=== PATIENT | male | born 1945 | race Caucasian/White ===

== ENCOUNTER 2020-03-08 14:58 | Outpatient (CLI) | payer OTHER, SELFPAY ==
--- NOTE | ~2020-03-08 | CT_ITS ---
EXAMINATION: CT chest wo con DATE: 03/08/2020 15:17 INDICATION: Emphysema and cough TECHNIQUE: Computed tomography (CT) of the chest was performed without intravenous contrast. The dose -length product (DLP) was 384.61 mGy-cm. Automated exposure control and iterative reconstruction tech nique were employed. COMPARISON: None FINDINGS: There is mild emphysema. Calcified pulmonary nodules and calcified right hilar and mediasti nal lymph nodes are consistent with old granulomatous disease. There is mild atelectasis of the lung bases. The heart size is normal. No pathologically enlarged thoracic lymph nodes are identified. Calc ified coronary artery atherosclerosis is noted. There is moderate thoracic spondylosis. There is a pa rtially imaged 7.7 cm cyst of the left kidney. 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 IMPRESSION: 1. Mild emphysema. Reviewed, dictated and finalized at location A. O PNEUMATIC TESTER IMPRESSION: 1. Mild emphysema.
== END 2020-03-08 14:59 | disposition home or self-care (01) ==
LOC: ANHIMG 15:05
PROVIDERS: PCP Nurse Practitioner Adult Health; Visit Provider Nurse Practitioner Adult Health
DX: J43.9 Emphysema, unspecified (principal)
CPT/HCPCS: 71250

== ENCOUNTER 2020-06-11 12:35 | Outpatient (CLI) | payer OTHER, SELFPAY ==
--- NOTE | 2020-06-11 16:16 | P.PCNPFT_ITS ---
PFT Interpretation This is a pulmonary function test with pre and post-bronchodilator spirometry, plethysmography and diffusing capacity. The test was performed and results interpreted in accordance with the 2019 and 2005 ATS/ERS Task Force guidelines respectively using the Global Lung Function Initiative-2012 reference equations. Patient demonstrated good effort and c ooperation. Reproducibility criteria were met. The quality of the pre bronchodilator spirometry maneuver was Grade A and post bronchodilator spirometry maneuver was Grade A. Findings: Spirometry: There is decreased maximal expiratory airflow at all lung volumes with concave expiratory flow tracing. The inspiratory flow tracing is normal. The pre bronchodilator FVC is 5.41 L, 108% predicted. The pre bronchodilator FEV1 is 2.88 L, 78% predicted. The FEV1: FVC ratio is 53%. The post bronchodilator FVC is 6.14 L, representing a 13% increase. The post bronchodilator FEV1 is 3.24 L, representing a 13% increase. Plethysmography: The total lung capacity is 10.6, 124% predicted. The functional residual capacity is 5.91, 132% predicted. The residual volume is 4.84 L, 169% predicted. Diffusing capacity: The absolute diffusion capacity is 23.3, 84% predicted. The diffusing capacity corrected for alveolar volume is 2.58, 74% predicted. Impression: There is a mild obstructive abnormality with significant improvement after inhaling a single dose of albuterol. The increase in residual volume is consistent with air trapping from an obstructive abnormality. Hyperinflation is present is demonstrated by the increase in functional residual capacity and total lung capacity and is consistent with an obstructive abnormality. The diffusing capacity is normal. There are no prior studies for comparison
== END 2020-06-11 12:36 | disposition home or self-care (01) ==
PROVIDERS: PCP Nurse Practitioner Adult Health; Visit Provider Nurse Practitioner
DX: R05 Cough (principal); R94.2 Abnormal results of pulmonary function studies
CPT/HCPCS: 94060; 94726; 94729

== ENCOUNTER → 2021-02-18 11:41 | Outpatient (CLI) | payer OTHER, SELFPAY ==
--- NOTE | ~2021-02-18 | CT_ITS ---
EXAMINATION: CT soft tissue neck w con DATE: 02/18/2021 12:13 INDICATION: Localized enlarged lymph nodes. TECHNIQUE: Computed tomography (CT) of the neck was performed with 75 mL Omnipaque-350 intravenous co ntrast. Automated exposure control and iterative reconstruction technique were employed. The dose-marcy gth product was 442.77 mGy-cm. COMPARISON: Chest CT 03/08/2020 FINDINGS: There is right high internal jugular chain lymphadenopathy. There is left high and mid inte rnal jugular chain lymphadenopathy. For example, a left high internal jugular node measures 3.7 x 3.4 cm. 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 There i s a lipoma in the left posterior paraspinal musculature. There is plaque in the proximal internal car otid arteries with 0% stenosis relative to normal distal artery lumen diameters. There is moderate ce rvical spondylosis. There is extensive mucosal thickening in the paranasal sinuses. IMPRESSION: 1. Bilateral internal jugular chain lymphadenopathy, consistent with metastatic disease. Consider ult rasound-guided core needle biopsy of a left internal jugular chain lymph node if this is a new diagno sis. Reviewed, dictated and finalized at location A. PROCESSOR IMPRESSION: 1. Bilateral internal jugular chain lymphadenopathy, consistent with metastatic disease. Consider ultrasound-guided core needle biopsy of a left internal jugu lar chain lymph node if this is a new diagnosis.
[2021-02-18 12:00] LABS: Estimated Glomerular Filt Rate > 60
== END ==
PROVIDERS: PCP Nurse Practitioner Adult Health; Visit Provider Nurse Practitioner Adult Health
DX: R59.0 Localized enlarged lymph nodes (principal)
CPT/HCPCS: 70491; Q9967

== ENCOUNTER 2021-04-15 14:39 | Emergency (ER) | payer OTHER, SELFPAY ==
--- NOTE | ~2021-04-15 | CT_ITS ---
EXAMINATION: CT soft tissue neck w con EXAM DATE: 04/15/2021 16:06 INDICATION: Left neck swelling, status post lymph node biopsy. TECHNIQUE: Spiral CT of the neck was performed following intravenous injection of 75 mL Omnipaque 350 . Axial, coronal and sagittal images were reviewed. The dose-length product (DLP) for this examinat ion was 685.51 mGy-cm. The exposure was tailored according to patient size (auto mA exposure control ), and iterative reconstruction (ASIR) was used as additional dose reduction technique. Comparison is made to prior examination from 02/18/2021. FINDINGS: There is pathologically enlarged matted lymph node or lymph nodes along the left internal j ugular chain, measuring 4.0 x 3.5 cm (was 3.6 x 2.9 in January). No evidence of active contrast extr avasation, hematoma or abscess. Pathologically enlarged right internal jugular chain lymph node or no zechariah measuring 2.7 x 1.7 cm, also mildly increased in size. The thyroid gland is unremarkable. The submandibular and parotid glands are symmetric. The superi or mediastinum is unremarkable. The airway is unremarkable. Parapharyngeal and pre-glottic fat pl anes are preserved. The opacified vasculature is patent. The orbits are unremarkable. Visualize d sinuses and mastoid air cells are well aerated. Lung apices are clear. Moderate cervical spondyl osis. IMPRESSION: Bilateral internal jugular chain metastatic lymphadenopathy with mild increase in size. N o acute findings. Reviewed, dictated and finalized at location A. L BUSINESS SALES REPRESENTATIVE IMPRESSION: Bilateral internal jugular chain metastatic lymphadenopathy with mi ld increase in size. No acute findings.
[2021-04-15 14:42] VITALS: BP 160/104; PULSE 80; RESP 18; TEMP 37.1; O2SAT 99
--- NOTE | 2021-04-15 15:16 | ED.NECK ---
HPI - Neck Pain/Injury General Chief Complaint: Recheck/Abnormal Lab/Rx Stated Complaint: Post Biopsy Swelling Time Seen by Provider: 04/15/21 15:05 Source: patient Mode of arrival: ambulatory Limitations: no limitations History of Present Illness HPI Narrative: Patient is a 75-year-old male complaining of left neck swelling, status post lymph node biopsy yesterday. Patient states that he had a lymph node biopsy done [facility] yesterday and was advised that if he noticed swelling in his neck to go to the nearest emergency room. Patient states that he was fine after the biopsy but this morning noticed noticeable swelling on his left neck, site of his biopsy. Patient dysphagia, shortness of breath, lip swelling, tongue swelling or throat swelling. Denies fever or chills. Related Data Allergies Allergy/AdvReac Type Severity Reaction Status Date / Time No Known Allergies Allergy Unverified 02/05/19 12:43 Review of Systems Review of Systems: All systems reviewed & are unremarkable except as noted in HPI and below Constitutional: Constitutional: Denies body ache(s), Denies chills, Denies excessive sweating, Denies fatigue, Denies fever(s), Denies headache(s), Denies lethargy, Denies malaise, Denies weakness and Denies weight loss Eyes: Eyes: Denies blurry vision, Denies change in vision and Denies loss of vision ENT: Denies dizziness, Denies ear discharge, Denies headache(s), Denies lip swelling, Denies epistaxis, Denies nasal congestion, Denies throat swelling and Denies tongue swelling Cardiovascular: Cardiovascular: Denies chest pain, Denies chest pain at rest, Denies chest pain with activity, Denies diaphoresis, Denies rapid heart rate, Denies edema, Denies irregular heart rhythm, Denies lightheadedness, Denies palpitations, Denies dyspnea and Denies dyspnea on exertion Respiratory: Respiratory: Denies chest congestion, Denies cough, Denies hemoptysis, Denies dyspnea and Denies dyspnea on exertion Gastrointestinal: Gastrointestinal: Denies abdominal pain, Denies melena, Denies hematochezia, Denies diarrhea, Denies nausea, Denies vomiting and Denies hematemesis Musculoskeletal: Musculoskeletal: Denies abnormal gait, Denies deformity, Denies joint swelling, Denies limited range of motion, Denies neck pain and Denies numbness Neurologic: Denies Abnormal speech present, Denies abnormal gait, Denies confusion, Denies dizziness, Denies headache(s), Denies focal weakness, Denies loss of vision, Denies numbness, Denies Other visual disturbances, Denies Sensory deficit (Neuro) and Denies weakness Psychiatric: Psychiatric: Denies confusion, Denies depression, Denies auditory hallucinations, Denies homicidal ideation and Denies suicidal ideation Endocrine: Endocrine: Denies cold intolerance, Denies excessive sweating, Denies fatigue, Denies heat intolerance and Denies palpitations Hematologic/Lymphatic: Hematologic/Lymphatic: Denies easy bleeding and Denies easy bruising Allergic/Immunologic: Allergic/Immunologic: Denies lip swelling, Denies throat swelling and Denies tongue swelling PMFSH Past Medical History Medical History (Updated 04/15/21 @ 17:46 by Yuri Vang MD) 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
[2021-04-15 15:23] LABS: Basophils Percent Auto 0.4 % (0.2-1.2); Eosinophils Absolute Auto 0.2 K/mm3 (0-0.3); Eosinophils Percent Auto 2.6 % (0-4.4); Hematocrit 41.8 % (42.0-52.0); Hemoglobin 14.2 g/dL (14.0-18.0); Immature Granulocyte Absolute 0.03 K/mm3 (0.00-0.031); Immature Granulocyte Percent A 0.4 % (0-0.5); Lymphocytes Absolute Auto 0.61 K/mm3 (0.9-3.2); Lymphocytes Percent Auto 8.3 % (18.3-44.2); Mean Corpuscular Hemoglobin 30.5 pg (26-34); Mean Corpuscular Volume 89.9 fl (80-100); Monocytes Absolute Auto 0.5 K/mm3 (0.1-0.6); Monocytes Percent Auto 6.7 % (2.6-8.5); Neutrophils Percent Auto 81.6 % (45.5-73.1); Platelet Count Result 180 k/mm3 (150-375); Red Blood Count 4.65 M/mm3 (4.6-6.20); Red Cell Distribution Width 12.4 % (11.5-14.5); White Blood Count 7.3 K/mm3 (4.5-10.0)
[2021-04-15 15:37] LABS: Anion Gap 7 mmol/L (8-16); Blood Urea Nitrogen 20 mg/dL (9-20); Calcium 8.7 mg/dL (8.4-10.2); Carbon Dioxide 25 mmol/L (22-30); Chloride 103 mmol/L (98-107); Estimated CRCL calculation 63 ml/min; Estimated Glomerular Filt Rate > 60; Glucose 100 mg/dL (65-110); Potassium 4.1 mmol/L (3.4-5.0); Sodium 135 mmol/L (137-145)
[2021-04-15] MEDS: LACTATED RINGERS 1,000 ML 999 ML IV CONT (15:37)
[2021-04-15 18:15] VITALS: BP 118/78; PULSE 78; RESP 14; TEMP 36.6; O2SAT 98
== END 2021-04-15 18:20 | disposition home or self-care (01) ==
PROVIDERS: Physician Assistant; Emergency Provider Emergency Medicine; PCP Nurse Practitioner Adult Health
DX: R22.1 Localized swelling, mass and lump, neck (principal); Z98.890 Other specified postprocedural states; Z86.73 Personal history of transient ischemic attack (TIA), and cerebral infarction without residual deficits; Z85.46 Personal history of malignant neoplasm of prostate; Z85.820 Personal history of malignant melanoma of skin
CPT/HCPCS: 36415; 70491; 80048; 85025; 96361; 96374; 99284; J1100; J7120; Q9967

== ENCOUNTER 2021-06-30 11:23 | Observation (INO) | payer OTHER, SELFPAY ==
[2021-06-30] VITALS (38 sets, daily range): BP systolic 100–151; BP diastolic 60–98; PULSE 97–121; RESP 7–20; TEMP 36.1–36.4; O2SAT 96–100
[2021-06-30] MEDS: SODIUM CHLORIDE 0.9% IV 1,000 ML 150 ML IV CONT (13:11)
[2021-06-30 13:13] LABS: Hematocrit 36.3 % (42.0-52.0); Hemoglobin 12.3 g/dL (14.0-18.0); Mean Corpuscular HGB Conc 33.9 g/dl (32-36); Mean Corpuscular Volume 91.4 fl (80-100); Mean Platelet Volume 11.5 fl (7.4-10.4); Platelet Count Result 137 k/mm3 (150-375); Red Blood Count 3.97 M/mm3 (4.6-6.20); Red Cell Distribution Width 12.9 % (11.5-14.5)
[2021-06-30 13:23] LABS: Alanine Aminotransferase 28 U/L (4-50); Alkaline Phosphatase 101 U/L (38-126); Anion Gap 9 mmol/L (8-16); Aspartate Amino Transferase 28 U/L (17-59); Bilirubin,Total 0.7 mg/dL (0.2-1.3); Blood Urea Nitrogen 73 mg/dL (9-20); Calcium 8.9 mg/dL (8.4-10.2); Carbon Dioxide 26 mmol/L (22-30); Chloride 102 mmol/L (98-107); Estimated CRCL calculation 41 ml/min; Estimated Glomerular Filt Rate 39; Glucose 76 mg/dL (65-110); Potassium 3.1 mmol/L (3.4-5.0); Sodium 137 mmol/L (137-145)
[2021-06-30 13:26] LABS: White Blood Count 1.3 K/mm3 (4.5-10.0)
[2021-06-30 13:40] LABS: Band Neutrophils Percent 10 % (0-6); Lymphocytes Absolute Manual 0.37 K/mm3 (1.1-4.5); Monocytes Absolute Manual 0.18 K/mm3 (0.1-0.90); Monocytes Percent Manual 14 % (3-9); Neutrophils Absolute Manual 0.74 K/mm3 (1.3-6.7); Neutrophils Percent Manual 47 % (46-73); Total Cells Counted 100
[2021-06-30] MEDS: SODIUM CHLORIDE 0.9% IV 1,000 ML 999 ML (13:52)
[2021-06-30 13:58] LABS: Appearance Urine Clear (Clear); Bilirubin Urine Negative (Negative); Blood Urine 2+ (Negative); Color Urine Yellow (Yellow); Glucose Urine UA Negative (Negative); Ketones Urine Negative (Negative); Leukocyte Esterase Ur Negative LEU/UL (Negative); Nitrate Urine Negative (Negative); Protein Urine Negative (Negative); Urobilinogen Urine 0.2 mg/dL (<2.0)
[2021-06-30 14:04] LABS: Bacteria Urine Trace /hpf; Mucus Urine Rare /lpf; RBC Urine 0-2 /hpf (0-2); Squamous Epithelial Cell Urine Rare /hpf (Few); WBC Urine 0-3 /hpf
[2021-06-30 14:06] LABS: Add Urine Microscopic? YES
--- NOTE | 2021-06-30 14:56 | ED.GENADULT ---
HPI - General Adult General Chief complaint: Weakness Stated complaint: chemo pt/low bp Time Seen by Provider: 06/30/21 12:37 Source: patient and family Mode of arrival: ambulatory Limitations: no limitations History of Present Illness HPI narrative: 75-year-old with a history of hyperlipidemia hypertension presently going through chemo radiation treatment for tongue cancer. Sent sent in by his primary oncologist for possible dehydration. Patient states that he is unable to drink and eat. He feels lightheaded at times. His blood pressure was low earlier this morning. No history of nausea, vomiting or abdominal pain or diarrhea. Onset (ago): day(s) (2) Relieving factors: none Associated symptoms: denies other symptoms Related Data Allergies Allergy/AdvReac Type Severity Reaction Status Date / Time No Known Allergies Allergy Unverified 02/05/19 12:43 Review of Systems Review of Systems: All systems reviewed & are unremarkable except as noted in HPI and below Constitutional: Constitutional: Reports no additional constitutional complaints Eyes: Eyes: Reports no additional eye complaints ENT: Reports as per HPI Cardiovascular: Cardiovascular: Reports no additional cardiovascular complaints Respiratory: Respiratory: Reports no additional respiratory complaints Gastrointestinal: Gastrointestinal: Reports no additional gastrointestinal complaints Musculoskeletal: Musculoskeletal: Reports no additional musculoskeletal complaints Integumentary/Breasts: Skin/Breast: Reports system reviewed and no additional complaints, except as docu Neurologic: Reports system reviewed and no additional complaints, except as documented PMFSH Past Medical History Medical History (Updated 06/30/21 @ 16:42 by Sarita Castaneda APRN) 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 HEAD: Normocephalic, atraumatic. EYES: PERRLA and EOMI. ENT: Nares clear, no rhinorrhea or epistaxis. Mucous membranes moist. NECK: Supple.scarring on the left side of the neck CHEST: Clear to auscultation. No respiratory distress. HEART: Regular rate and rhythm. No murmur heard. Normal peripheral pulses. ABDOMEN: Soft, nontender, nondistended, normal active bowel sounds. EXTREMITIES: Normal range of motion. No edema. SKIN: Warm, dry, no rash. NEURO: No focal deficits. Alert and oriented x3. PSYCH: Normal mood and affect. Course Course Emergency Course: Inform patient and the family about his lab work. He still remains tachycardic after liter of fluid recommended him for admission for hydration. Family agreed. Vital Signs Vital signs: Vital Signs Temperature 36.1 C L 06/30/21 11:31 Pulse Rate 99 06/30/21 11:31 Respiratory Rate 20 06/30/21 11:31 Blood Pressure 100/64 06/30/21 11:31 Pulse Oximetry 99 06/30/21 11:31 Temperature 36.1 C L 06/30/21 11:31 Pulse Rate 105 H 06/30/21 16:31 Respiratory Rate 12 06/30/21 16:31 Blood Pressure 132/98 H 06/30/21 16:31 Pulse Oximetry 99 06/30/21 16:31 Medical Decision Making Vital Signs Vital Signs: Vital Signs Temperature 36.1 C L 06/30/21 11:31 Pulse Rate 99 06/30/21 11:31 Respiratory Rate 20 06/30/21 11:31 Blood Pressure 100/64 06/30/21 11:31 Pulse Oximetry 99 06/30/21
--- NOTE | 2021-06-30 16:33 | PM.IMHP ---
H&P: HPI History of Present Illness Date/Time: Patient was placed observation status for expected length of stay less than 23 hours for management, will plan to re-evaluate tomorrow for improvement. 06/30/21 16:33 Chief Complaint: Weakness Narrative: Mr. Morton is a 5-year-old gentleman who presented emergency room with complaints of weakness. Patient states he went to radiation yesterday and complained to the nurse about having weakness him and it was noted that his blood pressure was low and his heart rate was elevated. Patient states he would again today and complained further and it was noted that his blood pressure was low and his heart rate was elevated and he was told to come to the closest hospital. 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 Patient states he has received 2 rounds of chemotherapy and his last treatment is to be next week. Patient is receiving daily radiation treatments with his last treatment to be on 07/11/2021. Patient states that he has been on a liquid diet and been tolerating that without any difficulty, but recently he has started drinking more caffeine and he thinks this may have dehydrated him. Patient denies any nausea or vomiting. Patient denies any diarrhea. Patient denies any fever or chills. 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 Review of Systems Review of Systems: A 12 point review of systems was completed patient all pertinent positive and negative per HPI the remainder are unremarkable. 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 CVA (cerebral vascular accident) DVT prophylaxis Melanoma Tongue cancer Surgical History Surgical History History of prostate surgery Family History Family History Father Rheumatic fever with heart involvement Mother Adult failure to thrive Social History Social History Smoking status: Never smoker Alcohol intake: current Alcohol use details: 1 or 2 beers a month Substance use: never Substance use type: does not use Meds Home Medications and Allergies Home Medications Medication Instructions Recorded Confirmed Type aspirin 81 mg tablet,delayed 81 mg PO DAILY #90 tablet 04/01/19 Rx release atorvastatin 40 mg tablet 40 mg PO DAILY #90 tablet 04/01/19 Rx lisinopril 2.5 mg tablet 2.5 mg PO DAILY #90 tablet 04/01/19 Rx methylprednisolone [Medrol (Kristopher)] See Rx Instructions .ROUTE 04/15/21 Rx .COMPLEX #21 each Allergies Allergy/AdvReac Type Severity Reaction Status Date / Time No Known Allergies Allergy Unverified 02/05/19 12:43 Vital Signs Vital Signs - 24 hr 06/30/21 11:31 06/30/21 12:36 06/30/21 12:37 Temperature 36.1 C L Pulse Rate 99 111 H Respiratory Rate 20 13 Blood Pressure 100/64 119/86 Pulse Oximetry 99 98 06/30/21 12:45 06/30/21 12:46 06/30/21 12:51 Temperature Pulse Rate 112 H 121 H 108 H Respiratory Rate 11 L 15 7 L Blood Pressure 102/60 111/82 Pulse Oximetry 100 06/30/21 13:00 06/30/21 13:01 06/30/21 13:15 Temperature Pulse Rate 107 H 108 H 106 H Respiratory Rate 10 L 12 13 Blood Pressure 114/76 Pulse Oximetry 98 98 99 06/30/21 13:16 06/30/21 13:30 06/30/21 13:31 Temperature Pulse Rate 110 H 108 H 104 H Respiratory Rate 12 12 11 L Blood Pressure 100/84 114/83 Pulse Oximetry 100 98 99 Exam Narrative: Constitutional: Patient is well-nourished in no acute distress. Patient is alert and oriented x3 HEENT: Moist mucous membranes. 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 No scleral icterus. No lymphadenopathy. Neck: No carotid br
[2021-06-30] MEDS: POTASSIUM CHLORIDE INJ 40 MEQ in SODIUM CHLORIDE 0.9% IV 500 ML 130 MEQ IVPB (17:44)
--- NOTE | 2021-06-30 18:50 | ADMGEN ---
This patient, Christian Morton, was admitted to Medical Room 246-01. Patient/family oriented to hospital policies and general routines including ID bracelet, bed and alarms, visiting hours, pain management, procedures, bathroom and other care routines, personal items, smoking policy, room service/diet, and visiting hours. Information on how to activate the Rapid Response Team has been discussed. Patient/Family are encouraged to report perceived risks to care and to ask questions if they do not understand what they are told or what they should do.
[2021-06-30] MEDS: SODIUM CHLORIDE 0.9% IV 1,000 ML 100 ML IV CONT (21:57)
[2021-06-30] MEDS: MAGNES & ALUM HYD/SIMETH/DIPHENHYD/LIDOCAINE 119 ML MOUTHWASH BY MOUTH (21:57)
[2021-06-30 23:07] LABS: Potassium 3.7 mmol/L (3.4-5.0)
[2021-07-01] VITALS: BP 135/65; PULSE 92; RESP 21; TEMP 36.3; O2SAT 100
[2021-07-01 05:21] LABS: Hematocrit 30.3 % (42.0-52.0); Lymphocytes Absolute Auto 0.17 K/mm3 (0.9-3.2); Lymphocytes Percent Auto 19.5 % (18.3-44.2); Mean Corpuscular Hemoglobin 30.4 pg (26-34); Mean Corpuscular Volume 92.1 fl (80-100); Mean Platelet Volume 10.8 fl (7.4-10.4); Monocytes Absolute Auto 0.2 K/mm3 (0.1-0.6); Monocytes Percent Auto 18.4 % (2.6-8.5); Neutrophils Absolute Auto 0.5 K/mm3 (1.3-6.7); Neutrophils Percent Auto 62.1 % (45.5-73.1); Platelet Count Result 103 k/mm3 (150-375); Red Blood Count 3.29 M/mm3 (4.6-6.20); Red Cell Distribution Width 12.8 % (11.5-14.5)
[2021-07-01 05:34] LABS: Anion Gap 3 mmol/L (8-16); Blood Urea Nitrogen 47 mg/dL (9-20); Carbon Dioxide 27 mmol/L (22-30); Chloride 112 mmol/L (98-107); Estimated CRCL calculation 49 ml/min; Estimated Glomerular Filt Rate 49; Glucose 106 mg/dL (65-110); Potassium 4.2 mmol/L (3.4-5.0); Sodium 142 mmol/L (137-145)
[2021-07-01 06:00] VITALS: BP 145/63; PULSE 87; RESP 18; TEMP 36.4; O2SAT 96; BMI 24.3
[2021-07-01 07:32] LABS: White Blood Count 0.9 K/mm3 (4.5-10.0)
[2021-07-01 07:35] LABS: Anisocytosis 1+ (NORMAL); Ovalocytes 1+ (NORMAL)
[2021-07-01] MEDS: SODIUM CHLORIDE 0.9% IV 1,000 ML 100 ML IV CONT (08:13)
--- NOTE | 2021-07-01 11:36 | PM.DS ---
DS: Admitting Diagnosis Discharge Date 07/02/2019 Admitting Diagnosis Dehydration DS: Discharge Diagnosis Discharge Diagnosis (1) Dehydration: Code(s): E86.0 - Dehydration Status: Acute Assessment and Plan: Given 2 L of IV fluids and his pulse rate and blood pressure have improved. Received continuous IVF overnight. (2) Acute kidney injury: Code(s): N17.9 - Acute kidney failure, unspecified Status: Acute Assessment and Plan: Patient's baseline creatinine appears to be 1.1. Creatinine 1.7 in ED and down to 1.4. Will need follow up with PCP to recheck creatinine. (3) Neutropenia: Code(s): D70.9 - Neutropenia, unspecified Status: Acute Assessment and Plan: Patient's white blood cell count is 1.7. On reverse precautions while hospitalized. (4) Tongue cancer: Code(s): C02.9 - Malignant neoplasm of tongue, unspecified Status: Acute Assessment and Plan: Patient is to have radiation at 2:00 p.m. tomorrow at [facility] that has an extension of the [facility]. (5) Hypokalemia: Code(s): E87.6 - Hypokalemia Status: Acute Assessment and Plan: Resolved DS: Summary Hospital Course Hospital Course: 75M with a past medical history of HLD, HTN, tongue cancer currently having chemoradiation who presented to the ED with dehydration. He had been unable to eat or drink and was feeling lightheaded. In the ED his BP was borderline low and he had hypokalemia. Patient was given 2L NS in ED and as well as potassium chloride 40 mEq once for his dehydration and hypokalemia, respectively. HE recieved fluids overnight and felt better the next morning. Patient had PRIYANKA from the dehydration, which improved with his creatinine going from 1.7--->1.4 the next morning. Patient discharged to home and advised to follow up with pcp within a week. Status at Discharge Overall status at discharge: patient is back to baseline Time Spent with Patient Time attestation: Total time spent providing and/or coordinating discharge services: Exam Narrative: GENERAL: NAD, cooperative HEENT: Normocephalic, atraumatic, anicteric NECK: Supple CV: Normal S1, S2, RRR, No MRG RESP: CTAB, Normal work of breathing. EXTREMITIES: Warm and well perfused, no clubbing, cyanosis, or edema. SKIN: warm, dry and intact. NEURO:CN 2-12 grossly intact. DS: Data Data Completed and Pending Labs on day of discharge: Labs from last 24 hours 07/01/21 07/01/21 06/30/21 05:00 05:00 22:46 WBC 0.9 L* RBC 3.29 L Hgb 10.0 L Hct 30.3 L MCV 92.1 MCH 30.4 MCHC 33.0 RDW 12.8 Plt Count 103 L MPV 10.8 H Immature Gran % (Auto) 0.0 Neut % (Auto) 62.1 Lymph % (Auto) 19.5 [place] % (Auto) 18.4 H Eos % (Auto) 0.0 Baso % (Auto) 0.0 L Lymph # (Auto) 0.17 L [place] # (Auto) 0.2 Eos # (Auto) 0.0 Baso # (Auto) 0.0 Abs Immat Gran (auto) 0.00 Absolute Neuts (auto) 0.5 L Absolute Nucleated RBC 0.0 Total Counted Neutrophils % (Manual) Band Neutrophils % Lymphocytes % (Manual) Monocytes % (Manual) Nucleated RBC % 0.0 Abs Neuts (Manual) Abs Lymphs (Manual) Abs Monocytes (Manual) Platelet Estimate Slightly decreased Anisocytosis 1+ Ovalocytes 1+ Sodium 142 Potassium 4.2 3.7 Chloride 112 H Carbon Dioxide 27 Anion Gap 3 L BUN 47 H D Creatinine 1.40 H Estim Creat Clear Calc 49 Estimated GFR 49 L Glucose 106 Calcium 8.0 L Total Bilirubin AST ALT Alkaline Phosphatase Total Protein Albumin Urine Color Urine Appearance Urine pH Ur Specific Spring Urine Protein Urine Glucose (UA) Urine Ketones Ur Blood (Man) Urine Nitrate Urine Bilirubin Urine Urobilinogen Leukocyte Esterase Rfl Urine RBC Urine WBC Ur Squamous Epith Cells Urine Bacteria Hyaline Casts Urine
== END 2021-07-01 12:39 | disposition home or self-care (01) ==
LOC: ANHED 14:56 → ANH2MED 07-01 08:18
PROVIDERS: Nurse Practitioner Adult Health; Admitting Provider Family Medicine; Emergency Provider Family Medicine; PCP Nurse Practitioner Adult Health; Visit Provider Family Medicine
DX: E86.0 Dehydration (principal); N17.9 Acute kidney failure, unspecified; C02.9 Malignant neoplasm of tongue, unspecified; I10 Essential (primary) hypertension; D70.9 Neutropenia, unspecified; E87.6 Hypokalemia; E78.5 Hyperlipidemia, unspecified; Z86.73 Personal history of transient ischemic attack (TIA), and cerebral infarction without residual deficits; Z92.3 Personal history of irradiation; Z85.46 Personal history of malignant neoplasm of prostate; Z85.820 Personal history of malignant melanoma of skin
CPT/HCPCS: 36415; 80048; 80053; 81001; 84132; 85025; 96360; 96361; 96365; 96366; 99285; A9270; G0378; J3480; J7030; J7040

== ENCOUNTER → 2022-01-31 09:50 | Outpatient (CLI) | payer OTHER, SELFPAY ==
--- NOTE | ~2022-01-31 | MR_ITS ---
EXAMINATION: MR ankle RT wo con DATE: 01/31/2022 10:34 INDICATION: Spontaneous rupture of Achilles tendon. TECHNIQUE: Magnetic resonance imaging (MRI) of the right ankle was performed without intravenous cont rast. Sequences included sagittal, coronal, and axial proton-density weighted fast spin echo without and with fat saturation. COMPARISON: None. FINDINGS: Medial ankle ligaments: Deep deltoid ligament is normal. There is thickening and mild increased signal of the anterior superf icial deltoid ligament likely representing scarring related to chronic sprain. Similar there appears to be scarring of the superomedial component of the spring ligament complex which also appears thicke samuel. Lateral ankle ligaments: Prominent thickening and increased signal of the anterior talofibular ligament with heterotopic ossic le along its fibular side consistent with sequela of chronic sprain. There is also thickening consist ent with scarring related to chronic sprain of the proximal calcaneofibular ligament. The posterior t alofibular ligament is normal. Tendons: Achilles tendinosis consistent with prominent thickening of the ligament with high-grade partial or m ore likely complete tear of the ligament located approximately 3 cm from the calcaneal insertion. The tear margins are right-sided and irregular limiting assessment for any retraction which present is l ikely minimal . The peroneus longus and brevis tendons are normal. The tibialis anterior and extensor hallucis longus and extensor digitorum longus tendons are normal. The tibialis posterior, flexor dig itorum longus and flexor hallucis longus tendons are normal. Plantar fascia: Plantar enthesopathy with moderate-sized plantar calcaneal spur and thickening and mild increased sig nal of the proximal plantar aponeurosis. Bones/other: Bone alignment is normal. No fracture or pathologic marrow replacing process. Mild polyarticular oste oarthritis with mild partial-thickness cartilage loss with mild nonuniform joint space narrowing at t he tibiotalar, subtalar and multiple tarsal metatarsal joints. Lisfranc ligament complex is normal. Fluid: Small ganglion cysts at the posterior aspect of the ankle joint and at the dorsal/lateral margin of t he talonavicular joint. Otherwise physiologic amount fluid in the joint spaces. IMPRESSION: 1. Prominent Achilles tendinosis with ragged high-grade partial or more likely complete tear of the A chilles tendon. 2. Scarring consistent with chronic sprains of the anterior superficial deltoid and superomedial comp onent of the spring ligament complex medially and anterior talofibular and calcaneofibular ligaments laterally. 3. Prominent enthesopathy at the calcaneal origin of the plantar aponeurosis. Reviewed, dictated and finalized at location B. IMPRESSION: 1. Prominent Achilles tendinosis with ragged high-grade partial or more likely complete tear of the Achilles tendon. 2. Scarring consistent with chronic sprains of the anterior superficial deltoid and superomedial component of the spring ligament complex medially and anterio r talofibular and calcaneofibular ligaments laterally. 3. Prominent enthesopathy at the calcaneal origin of the plantar aponeurosis.
== END ==
PROVIDERS: PCP Nurse Practitioner Adult Health; Visit Provider Podiatrist Foot & Ankle Surgery
DX: M66.861 Spontaneous rupture of other tendons, right lower leg (principal); M76.61 Achilles tendinitis, right leg
CPT/HCPCS: 73721

== ENCOUNTER 2022-02-02 09:19 | Emergency (ER) | payer OTHER, SELFPAY ==
[2022-02-02 09:26] VITALS: BP 148/64; PULSE 108; RESP 16; TEMP 37; O2SAT 99
--- NOTE | 2022-02-02 09:28 | ED.SKABFB ---
HPI - Skin/Abscess/Foreign Bdy General Chief complaint: Skin/Abscess/Foreign Body Stated complaint: Lump on Arm Time Seen by Provider: 02/02/22 09:27 Source: patient Mode of arrival: ambulatory Limitations: no limitations History of Present Illness HPI narrative: Patient is a 76-year-old male presenting to the emergency department for evaluation of nodule on left forearm. Patient states he noticed a nodule 2 days ago, but states it may have been there for longer period of time. Patient reports it is not tender or red. The forearm is not swollen. He denies numbness or weakness. He reports it is mobile. He denies recent upper extremity injury or trauma. He denies any bruising, redness or edema of the upper extremity. Patient denies pain in his wrist or forearm. No pain in his fingers. Related Data Home Medications Medication Instructions Recorded Confirmed fluticasone furoate 100 1 inh inhalation DAILY 06/30/21 06/30/21 mcg/actuation blister powder for inhalation (Arnuity Ellipta) Allergies Allergy/AdvReac Type Severity Reaction Status Date / Time No Known Allergies Allergy Verified 07/01/21 00:59 Review of Systems Review of Systems: CONSTITUTIONAL: Denies fever CARDIOVASCULAR: Denies chest pain RESPIRATORY: Denies cough or dyspnea. 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 EYES: PERRLA and EOMI. ENT: Nares clear, no rhinorrhea or epistaxis. Mucous membranes moist. NECK: Supple. CHEST: No respiratory distress, breathing even and non labored HEART: Regular rate, sinus rhythm ABDOMEN:Non distended, non tender EXTREMITIES: Normal range of motion. No edema. Patient with pea-sized nodule that is subdermal, mobile, to the dorsal aspect of the left forearm. No tenderness, erythema, induration. It is not firm or rigid. Radial pulse 2+. Intact sensation in left upper extremity to median, ulnar, radial nerve distribution. No bony tenderness. SKIN: Warm, dry, no rash. NEURO:No focal deficits. Alert and oriented x3 Course Vital Signs Vital signs: Vital Signs Temperature 37.0 C 02/02/22 09:26 Pulse Rate 108 H 02/02/22 09:26 Respiratory Rate 16 02/02/22 09:26 Blood Pressure 148/64 H 02/02/22 09:26 Pulse Oximetry 99 02/02/22 09:26 Oxygen Delivery Room Air 02/02/22 09:26 Temperature 37.0 C 02/02/22 09:26 Pulse Rate 108 H 02/02/22 09:26 Respiratory Rate 16 02/02/22 09:26 Blood Pressure 148/64 H 02/02/22 09:26 Pulse Oximetry 99 02/02/22 09:26 Oxygen Delivery Room Air 02/02/22 09:26 MDM - Skin/Abscess/Foreign Bdy MDM Narrative Medical decision making narrative: Patient presenting for evaluation of bump on the dorsal aspect of the left forearm. At the time of assessment, ABCs are intact and vital signs are stable. On assessment, differential includes ganglion cyst, dermoid cyst. Patient has no signs to be suggestive of a deep venous thrombosis. There is no arm edema, erythema, warmth. No evidence of infectious type changes.
== END 2022-02-02 10:52 | disposition home or self-care (01) ==
LOC: ANHED 10:22
PROVIDERS: Emergency Provider Emergency Medicine; PCP Nurse Practitioner Adult Health
DX: R22.32 Localized swelling, mass and lump, left upper limb (principal); Z86.73 Personal history of transient ischemic attack (TIA), and cerebral infarction without residual deficits; Z85.46 Personal history of malignant neoplasm of prostate
CPT/HCPCS: 99281

== ENCOUNTER 2023-06-25 11:33 | Emergency (ER) | payer OTHER, SELFPAY ==
[2023-06-25 11:42] VITALS: BP 108/70; PULSE 100; RESP 16; TEMP 36.2; O2SAT 98
--- NOTE | 2023-06-25 11:51 | ED.SKABFB ---
HPI - Skin/Abscess/Foreign Bdy General Chief complaint: Skin/Abscess/Foreign Body Stated complaint: Rash Source: patient, RN notes reviewed and old records reviewed Mode of arrival: ambulatory Limitations: no limitations History of Present Illness HPI narrative: 77-year-old male patient presents to [facility] with complaints painful rash to chest and upper back this started . Patient has not taken anything for symptoms. Patient states rash is worsening. Related Data Home Medications Medication Instructions Recorded Confirmed fluticasone furoate 100 1 inh inhalation DAILY 06/30/21 06/25/23 mcg/actuation blister powder for inhalation (Arnuity Ellipta) Allergies Allergy/AdvReac Type Severity Reaction Status Date / Time No Known Allergies Allergy Verified 06/25/23 11:43 Review of Systems Constitutional: Constitutional: Reports no additional constitutional complaints, Denies body ache(s), Denies chills, Denies fatigue, Denies fever(s) and Denies headache(s) Eyes: Eyes: Reports no additional eye complaints and Denies blurry vision ENT: Reports system reviewed and no additional complaints, except as documented, Denies vertigo, Denies dizziness, Denies ear discharge, Denies otalgia, Denies facial pain, Denies headache(s), Denies nasal congestion, Denies nasal discharge, Denies sinus pain, Denies sinus pressure and Denies sore throat Cardiovascular: Cardiovascular: Reports no additional cardiovascular complaints, Denies chest pain, Denies chest pain at rest, Denies rapid heart rate and Denies dyspnea Respiratory: Respiratory: Reports no additional respiratory complaints, Denies chest congestion, Denies cough, Denies pain on inspiration, Denies pain with cough and Denies dyspnea Gastrointestinal: Gastrointestinal: Denies abdominal pain, Denies diarrhea, Denies nausea and Denies vomiting Integumentary/Breasts: Skin/Breast: Reports rash Neurologic: Reports system reviewed and no additional complaints, except as documented, Denies vertigo, Denies dizziness and Denies headache(s) Endocrine: Endocrine: Denies fatigue PMFSH Past Medical History 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 There is no relevant family history pertinent to the patient complaint. Exam Const: General: cooperative, healthy appearing, no acute distress and well nourished Nutritional Appearance: well nourished Orientation/consciousness: patient oriented x3 Limitations: no limitations HENMT: Head: normal to inspection and normocephalic Ears: external ears normal Face/Nose/Sinus: normal facial exam Face and sinus: normal facial exam Mouth: Yes Normal oral and palatal mucosa present, Yes oropharynx normal and Yes moist mucous membranes Eyes: General: appearance normal, both eyes and all related structures Sclera: sclerae normal Pupils: Equal, round and reactive pupils present Resp: Effort & Inspection: normal respiratory effort, able to speak in complete sentences, no audible wheezes, no cough, no respiratory distress and no retractions Skin: General skin exam: normal color Rashes: rashes noted
== END 2023-06-25 12:00 | disposition home or self-care (01) ==
PROVIDERS: Emergency Provider Registered Nurse
DX: B02.9 Zoster without complications (principal); Z86.73 Personal history of transient ischemic attack (TIA), and cerebral infarction without residual deficits; Z85.46 Personal history of malignant neoplasm of prostate; Z85.820 Personal history of malignant melanoma of skin; Z85.810 Personal history of malignant neoplasm of tongue
CPT/HCPCS: 99213; G0463

== ENCOUNTER 2024-10-21 14:17 | Outpatient (CLI) | payer OTHER, SELFPAY ==
--- OUTSIDE RECORDS SUMMARY | 2024-10-21 14:23 | XMS_ITS | Encounter Summary ---
Author Organization [facility] Healthcare Address [address] [place] [address] Care Team Providers Care Director Of Research Center Name Role Phone Yahir Marley MD Unavailable Yuri Rogel MD Unavailable Rosalie Ordoñez NP Unavailable Lai Bonilla MD Unavailable Javier Correa MD Unavailable Reinaldo Wilks MD Unavailable No, Physician Primary Care Provider Wilber Moe Primary Care Provider + Encounter Details Date Type Department Care Team (Late st Contact Info) Description 03/07/2023 Telephone [facility] Radiation Oncology [address] [facility] [place] [address] Elaine Lorenz RN Social History Tobacco Use Types Packs/Day Years Used Date Smoking Tobacco: Never Smokeless Tobacco: Never Chew Quit: 1965 Alcohol Use Standard Drinks/Week Comments Yes 0 (1 standard drink = 0.6 oz pur e alcohol) 1 per week AUDIT-C Answer Date Recorded Q1: How often do you have a drink containing alc ohol? 2-4 times a month 06/02/2022 Q2: How many drinks containi ng alcohol do you have on a typical day when you are drinking? 1 or 2 06/02/2022 Q3: How often do you have si x or more drinks on one occasion? 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 Gender Identity Not on file Sexual Orientation Not on file documented as of this encounter Plan of Treatment Not on file documented as of this encounter Visit Diagnoses Not on filedocumented in this encounter Care Teams Director Of Research Center Relationship Specialty Start Date End Date No, Physician PCP - General 05/30/22 06/18/23 Wilber Moe PA [address] [place] [address] PCP - General Internal Medicine 06/19/23 Yahir Marley MD Radiation Oncologist Radiation Oncology 08/07/18 Yuri Rogel MD Referring Physician Urology 08/07/18 Rosalie Ordoñez NP [address] [facility] [address] [place] [address] Nurse Practitioner Radiation Oncology 04/17/19 Lai Bonilla MD [address] [facility] [address] [place] [id number] Medical Oncologist/[facility] Medical Oncology 04/21/21 06/22/24 Javier Correa MD [address] [facility] OTOLARYNGOLOGY, [address] [address] Consulting Physician Otolaryngology 04/21/21 Reinaldo Wilks MD [address] [facility] OTOL[facility]OLOGY, [address] [address] Consulting Physician Radiation Oncology 04/21/21 documented as of this encounter
--- OUTSIDE RECORDS SUMMARY | 2024-10-21 14:23 | XMS_ITS | Encounter Summary ---
Author Organization [facility] Healthcare Address [address] [place] [address] Care Team Providers Care Mobile Service Rv Technician Name Role Phone Yahir Marley MD Unavailable Yuri Rogel MD Unavailable Rosalie Ordoñez NP Unavailable Lai Bonilla MD Unavailable Javier Correa MD Unavailable Reinaldo Wilks MD Unavailable No, Physician Primary Care Provider Wilber Moe Primary Care Provider + Encounter Details Date Type Department Care Team (Late st Contact Info) Description 04/17/2023 Telephone [facility] Radiation Oncology [address] [facility] [place] [address] Elaine Lorenz RN Social History Tobacco Use [...] more drinks on one occasion? 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 [address] [place] [address] Nurse Practitioner Radiation Oncology 04/17/19 Lai Bonilla MD [address] [facility] [address] [place] [address] Medical Oncologist/Animal Science Instructor Medical Oncology 04/21/21 06/22/24 Javier Correa MD [address] [facility] OTOLARYNGOLOGY, [address] [address] Consulting Physician Otolaryngology 04/21/21 Reinaldo Wilks MD [address] [facility] OTOLARYNGOLOGY, [address] [address] Consulting Physician Radiation Oncology 04/21/21 documented as of this encounter
--- OUTSIDE RECORDS SUMMARY | 2024-10-21 14:23 | XMS_ITS | Data Portability ---
Author Organization [facility], Main Office Address [address] [place] [address] Care Team Providers Care Keno Manager Name Role Phone KELVIN HARE Primary Care Provider Assessment Encounter Date Assessment Date Assessment LastModified by Organization Details LastModified Time 10/07/2024 10/07/2024 Time spent with patient included: preparing to see patient by reviewing tests, obtaining and reviewing history, medical examination and evaluation, counseling and educating the patient, ordering medications and tests, documenting clinical information in EHR, independently interpreting results and communicating results to the patient for a total of 49 minutes. Not available 10/08/2024 09:23:41 Plan of Treatment Reminders Order Date Submit Date Provider Last Modified By Organization Details Last Modified Time Details Appointments Physical/ Annual Wellness 30 2024 10:30A M CHRIS Dash Not available Not available Not available Lab vitamin D, 25-hydrox y, total, serum 2023 024 [email or web address] Not available 09/13/2023 08:44:41 vitamin B12 + folate, serum or blood 2023 024 [email or web address] Not available 09/13/2023 08:44:42 magnesium , serum or plasma 2023 024 [email or web address] Not available 09/13/2023 08:44:42 noninvasi ve colorecta l cancer DNA + occult blood screening , QL, stool 2023 024 [email or web address] [employer] (Cologuard Orders Only), [address], [address], [place], [address], 09/13/2023 08:44:41 lipid panel, serum [address] (Lab), [address] [place], [address], 09/13/2023 08:44:41 CMP, serum or plasma [address] (Lab), [address] [place], [address], 09/13/2023 08:44:41 TSH, serum or plasma [address] (Lab), [address] [place], [address], 09/13/2023 08:44:41 CK (creatine kinase), total, serum [address] (Lab), [address] [place], [address], 09/13/2023 08:44:41 CBC w/ auto diff [address] (Lab), [address] [place], [address], 09/13/2023 08:44:41 Referral pulmonolo gist referral - Please call patient to schedule an appointme nt. Thank you. 2024 025 [email or web address] Ollie Perry MD, [address] [place], [address], 09/24/2024 18:37:35 Procedures None recorded. Surgeries None recorded. Imaging None recorded. Medication Orders monteluka st 10 mg tablet 2024 025 [facility] #41838, [address] [place], [id number], 10/07/2024 11:59:54 Qvar RediHaler 80 mcg/actua tion HFA breath activated aerosol 2024 025 [facility] #[facility]70, [address] [place], [place], [id number], 09/18/2024 11:24:27 lisinopri l 5 mg tablet 2024 025 [facility] #89711, [address] [place], [place], [id number], 09/18/2024 11:24:28 Arnuity Ellipta 100 mcg/actua tion powder for inhalatio n 2023 024 [email or web address] 00 [facility] [employer] [facility] #25037, [address] [place], [place], [id number], 10/25/2023 14:00:28 lisinopri l 5 mg tablet 2023 024 [facility] #26530, [address] [place], [place], [id number], 09/06/2023 11:10:20 atorvasta tin 40 mg tablet 2023 024 [facility] [employer] [facility] #89032, [address] [place], [place], [id number], 09/06/2023 11:10:24 prednison e 20 mg tablet 2023 024 [facility] [employer] [facility] #55456, [address] [place], [place], [id number], 09/18/2024 10:34:30 Patient TargetsNo targets recorded. Patient Instructions Encounter Date Encounter Id Patient Instructions Last Modified By Organization Details Last Modified Time 10/07/2024 [id number] [facility] About Inhalers Not available 10/07/2024 11:59:49 complete PFT w/ post bronchodilator spirometry* - Please call patient to schedule. 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 Thank you. Referring Physician: Kelvin Hare, Family Medicine, Encounter Date: 09/18/2024 Results Created Date Observation Date Name Description Value Unit Range Abnormal Flag Note LastModifiedBy Organization Detail LastModifiedTime 03/27/20 24 03/28/2024 LIPID PANEL , STAND TRA cholesterol, total 126 mg/dL <200 normal Not Available [address], [address], 03/28/2024 05:17:31 03/27/20 24 03/28/2024 LIPID PANEL , STAND TRA HDL cholesterol 48 mg/dL > or = 40 normal Not Available [address] [place], [address], 03/28/2024 05:17:31 03/27/20 24 03/28/2024 LIPID PANEL , STAND TRA triglyceride s 99 mg/dL <150 normal Not Available [facility] [address], [address], 03/28/2024 05:17:31 03/27/20 24 03/28/2024 LIPID PANEL , STAND TRA LDL-choleste rol 60 mg/dL _(octavio c) normal Refer ence range : <100 Phong able range <100 mg/dL for prima ry preve ntion ; <70 mg/dL for patie nts with CHD or diabe tic patie nts with > or = 2 CHD risk facto rs. LDL-C is now calcu lated using the Mildred n-Hop kins calcu parveen n, which is a valid ated novel metho d provi gerson gregg r accur acy than the Fried joaquim equat ion in the estim ation of LDL-C . Mildred hicks SS et al. GALI. 2013; 310(1 9): 2061- 2068 (http ://ed ucati on.Qu Alvarado arianeNowledgeData. com/f aq/FA Q164) Not Available [address] [address] [place], [address], 03/28/2024 05:17:31 03/27/20 24 03/28/2024 LIPID PANEL , STAND TRA chol/HDLC ratio 2.6 (calc ) <5.0 normal Not Available [address] [address] [place], [address], 03/28/2024 05:17:31 03/27/2003/28/2024 LIPID PANEL , STAND TRA non HDL cholesterol 78 mg/dL _(octavio c) <130 normal For patie nts with diabe jael plus 1 major ASCVD risk facto r, treat ing to a non-H DL-C goal of <100 mg/dL (LDL- C of <70 mg/dL ) is consi dered a thera peuti c optio n. Not Available [facility] [address] [address] [place], [address], 03/28/2024 05:17:31 03/27/2003/28/2024 MAGNE SIUM magnesium 2.0 mg/dL 1.5-2. 5 normal Not Available [address] [address] [place], [address], 03/28/2024 05:17:34 03/27/2003/28/2024 COMPR EHENS MOSES METAB OLIC PANEL glucose 119 mg/dL 65-99 high Fasti ng refer ence inter mary For someo ne witho ut known diabe jael, a gluco se value betwe en 100 and 125 mg/dL is consi stent with predi abete s and shoul d be confi rmed with a follo w-up test. Not Available [facility] [address] [address] [place], [address], 03/28/2024 05:17:35 03/27/20 03/28/2024 COMPR EHENS MOSES METAB OLIC PANEL urea nitrogen (BUN) 27 mg/dL 7-25 high Not Available [address], [address], 03/28/2024 05:17:35 03/27/20 24 03/28/2024 COMPR EHENS MOSES METAB OLIC PANEL creatinine 1.30 mg/dL 0.70-1 .28 high Not Available [address], [address], 03/28/2024 05:17:35 03/27/20 24 03/28/2024 COMPR EHENS MOSES METAB OLIC PANEL eGFR 56 mL/mi n/1.7 3m2 > or = 60 low Not Available [address], [address], 03/28/2024 05:17:35 03/27/20 24 03/28/2024 COMPR EHENS MOSES METAB OLIC PANEL BUN/creatini ne ratio 21 (calc ) 6-22 normal Not Available [address], [address], 03/28/2024 05:17:35 03/27/20 24 03/28/2024 COMPR EHENS MOSES METAB OLIC PANEL sodium 138 mmol/ L 135-14 6 normal Not Available [address], [address], 03/28/2024 05:17:35 03/27/20 24 03/28/2024 COMPR EHENS MOSES METAB OLIC PANEL potassium 3.9 mmol/ L 3.5-5. 3 normal Not Available [address], [address], 03/28/2024 05:17:35 03/27/20 24 03/28/2024 COMPR EHENS MOSES METAB OLIC PANEL chloride 102 mmol/ L 98-110 normal Not Available [address], [place], [address], 03/28/2024 05:17:35 03/27/20 24 03/28/2024 COMPR EHENS MOSES METAB OLIC PANEL carbon dioxide 28 mmol/ L 20-32 normal Not Available [address], [address], 03/28/2024 05:17:35 03/27/20 24 03/28/2024 COMPR EHENS MOSES METAB OLIC PANEL calcium 9.2 mg/dL 8.6-10 .3 normal Not Available [address], [address], 03/28/2024 05:17:35 03/27/20 24 03/28/2024 COMPR EHENS MOSES METAB OLIC PANEL protein, total 6.4 g/dL 6.1-8. 1 normal Not Available [address], [address], 03/28/2024 05:17:35 03/27/20 24 03/28/2024 COMPR EHENS MOSES METAB OLIC PANEL albumin 4.2 g/dL 3.6-5. 1 normal Not Available [address], [address], 03/28/2024 05:17:35 03/27/20 24 03/28/2024 COMPR EHENS MOSES METAB OLIC PANEL globulin 2.2 g/dL_ (calc ) 1.9-3. 7 normal Not Available [facility] [address], [address], 03/28/2024 05:17:35 03/27/20 24 03/28/2024 COMPR EHENS MOSES METAB OLIC PANEL albumin/glob ulin ratio 1.9 (calc ) 1.0-2. 5 normal Not Available [address], [address], 03/28/2024 05:17:35 03/27/20 24 03/28/2024 COMPR EHENS MOSES METAB OLIC PANEL bilirubin, total 0.7 mg/dL 0.2-1. 2 normal Not Available [address], [address], 03/28/2024 05:17:35 03/27/20 24 03/28/2024 COMPR EHENS MOSES METAB OLIC PANEL alkaline phosphatase 92 U/L 35-144 normal Not Available [employer] [address], [address], 03/28/2024 05:17:35 03/27/20 24 03/28/2024 COMPR EHENS MOSES METAB OLIC PANEL AST 22 U/L 10-35 normal Not Available [address], [address], 03/28/2024 05:17:35 03/27/20 24 03/28/2024 COMPR EHENS MOSES METAB OLIC PANEL ALT 22 U/L 9-46 normal Not Available [address], [address], 03/28/2024 05:17:35 03/27/20 24 03/28/2024 CREAT INE KINAS E, TOTAL creatine kinase, total 56 U/L 44-196 normal Not Available [address], [address], 03/28/2024 05:17:36 03/27/20 24 03/28/2024 CBC (INCL UDES DIFF/ PLT) white blood cell count 3.7 thous and/u L 3.8-10 .8 low Not Available [address], [address], 03/28/2024 05:17:37 03/27/20 24 03/28/2024 CBC (INCL UDES DIFF/ PLT) red blood cell count 4.15 dioni on/uL 4.20-5 .80 low Not Available [address], [address], 03/28/2024 05:17:37 03/27/20 24 03/28/2024 CBC (INCL UDES DIFF/ PLT) hemoglobin 12.8 g/dL 13.2-1 7.1 low Not Available [address], [address], 03/28/2024 05:17:37 03/27/20 24 03/28/2024 CBC (INCL UDES DIFF/ PLT) hematocrit 39.5 % 38.5-5 0.0 normal Not Available [address], [address], 03/28/2024 05:17:37 03/27/20 24 03/28/2024 CBC (INCL UDES DIFF/ PLT) MCV 95.2 fL 80.0-1 00.0 normal Not Available [address], [address], 03/28/2024 05:17:37 03/27/20 24 03/28/2024 CBC (INCL UDES DIFF/ PLT) MCH 30.8 pg 27.0-3 3.0 normal Not Available [address], [address], 03/28/2024 05:17:37 03/27/20 24 03/28/2024 CBC (INCL UDES DIFF/ PLT) MCHC 32.4 g/dL 32.0-3 6.0 normal For adult s, a sligh t decre ase in the calcu lated MCHC value (in the range of 30 to 32 g/dL) is most likel y not clini vidal signi deep t; zee er, it shoul d be inter prete d with cauti on in corre latio n with other red cell binu eters and the patie nt's clini octavio condi tion. Not Available [address], [address], 03/28/2024 05:17:37 03/27/20 24 03/28/2024 CBC (INCL UDES DIFF/ PLT) RDW 12.2 % 11.0-1 5.0 normal Not Available [address], [address], 03/28/2024 05:17:37 03/27/20 24 03/28/2024 CBC (INCL UDES DIFF/ PLT) platelet count 189 thous and/u L 140-40 0 normal Not Available [address], [address], 03/28/2024 05:17:37 03/27/20 24 03/28/2024 CBC (INCL UDES DIFF/ PLT) MPV 11.1 fL 7.5-12 .5 normal Not Available [address], [address], 03/28/2024 05:17:37 03/27/20 24 03/28/2024 CBC (INCL UDES DIFF/ PLT) absolute neutrophils 2538 cells /uL 1500-7 800 normal Not Available [address], [address], 03/28/2024 05:17:37 03/27/20 24 03/28/2024 CBC (INCL UDES DIFF/ PLT) absolute lymphocytes 414 cells /uL 850-39 00 low Not Available [address], [address], 03/28/2024 05:17:37 03/27/20 24 03/28/2024 CBC (INCL UDES DIFF/ PLT) absolute monocytes 355 cells /uL 200-95 0 normal Not Available [address], [address], 03/28/2024 05:17:37 03/27/20 24 03/28/2024 CBC (INCL UDES DIFF/ PLT) absolute eosinophils 374 cells /uL 15-500 normal Not Available [address], [address], 03/28/2024 05:17:37 03/27/20 24 03/28/2024 CBC (INCL UDES DIFF/ PLT) absolute basophils 19 cells /uL 0-200 normal Not Available [address], [address], 03/28/2024 05:17:37 03/27/20 24 03/28/2024 CBC (INCL UDES DIFF/ PLT) neutrophils 68.6 % normal Not Available [address], [address], 03/28/2024 05:17:37 03/27/20 24 03/28/2024 CBC (INCL UDES DIFF/ PLT) lymphocytes 11.2 % normal Not Available [address], [address], 03/28/2024 05:17:37 03/27/20 24 03/28/2024 CBC (INCL UDES DIFF/ PLT) monocytes 9.6 % normal Not Available [address], [address], 03/28/2024 05:17:37 03/27/20 24 03/28/2024 CBC (INCL UDES DIFF/ PLT) eosinophils 10.1 % normal Not Available [facility] [address], [address], 03/28/2024 05:17:37 03/27/20 24 03/28/2024 CBC (INCL UDES DIFF/ PLT) basophils 0.5 % normal Not Available [address], [address], 03/28/2024 05:17:37 03/27/20 24 03/28/2024 VITAM IN B12/F OLATE , SERUM PANEL vitamin B12 584 pg/mL 200-11 00 normal Not Available [facility] [address] [address] [place], [address], 03/28/2024 05:17:38 03/27/20 24 03/28/2024 VITAM IN B12/F OLATE , SERUM PANEL folate, serum 15.4 NG/mL normal Refer ence Range Low: <3.4 Borde rline : 3.4-5 .4 Harriett l: >5.4 Not Available [facility] [address] [address] [place], [address], 03/28/2024 05:17:38 03/27/20 24 03/28/2024 VITAM IN D,25- OH,TO JONE,I A vitamin D,25-oh,tota l,ia 60 NG/mL 30-100 normal Vitam in D Statu s 25-OH Vitam in D: Defic iency : <20 ng/mL Insuf ficie ncy: 20 - 29 ng/mL Optim al: > or = 30 ng/mL For 25-OH Vitam in D testi ng on patie nts on D2-erwin pplem entat ion and patie nts for whom quant itati on of D2 and D3 fract ions is requi red, the [facility] eD(TM ) 25-OH VIT D, (D2,D 3), LC/MS /MS is recom erlin d: order code 51224 (delilah ents >2yrs ). See Note 1 Note 1 For addit ional infor philip hughes refer to http: //dayana Castañedaia gnost ics.c om/fa q/FAQ 199 (This link is being provi ded for infor shea tamayo/ rory krishna purpo ses only. ) Not Available [address] [address] [place], [address], 03/28/2024 05:17:39 03/27/20 24 03/28/2024 TSH W/REF KATLIN TO FT4 TSH w/reflex to FT4 8.20 mIU/L 0.40-4 .50 high Not Available [facility] [address] [address], [place], [address], 03/28/2024 05:17:40 03/27/20 24 03/28/2024 T4, FREE T4, free 1.3 NG/dL 0.8-1. 8 normal Not Available [facility] [address] [place], [address], 03/28/2024 05:17:42 Result Notes None recorded. Problems Name Problem SNOMED Code Status Onset Date Resolution Date Notes Provider Name and Address Organization Details Recorded Time Carcinoma of prostate 750526879 Active 2019 2018 Not Available [facility] 3 02:29:01 History of cerebrovas cular accident 550463042 Active 2019 Not Available [employer] 3 02:29:01 Seasonal allergic rhinitis 500650144 Active 2019 Not Available [facility] 3 02:29:01 Malignant melanoma 969328012 Active 2019 1979 Not Available [facility] 3 02:29:02 Hypertensi ve disorder 67268845 Active 2019 CHRISTINA Pickard [address] [place] [address], [address] , [facility] [employer] [facility] 4 13:20:02 Hyperlipid emia 59458268 Active 2019 Not Available [facility] 3 02:29:02 Deviated nasal septum 868238224 Active 2020 Not Available [employer] 3 02:29:01 Allergic rhinitis 92777375 Active 2020 Not Available [facility] 3 02:29:02 Chronic cough 37173424 Active 2020 Not Available [facility] 3 02:29:02 Pulmonary emphysema 96633661 Active 2020 Not Available [facility] 3 02:29:02 Asthma 403966865 Active 2020 Not Available [employer] 3 02:29:01 Squamous cell carcinoma 107826718 Active 2021 Not Available [facility] 3 02:29:02 Achilles tendinitis 87668538 Active 2021 Not Available [facility] 3 02:29:01 Sprain of right ankle 4729553908331 9105 Active 2021 Not Available [facility] 3 02:29:01 Pain of right shoulder joint 7546243498978 9100 Active 2021 Not Available [facility] 3 02:29:01 Insertiona l Achilles tendinopat hy 629735314 Active 2021 Not Available [facility] 3 02:29:02 Rupture of Achilles tendon 136868906 Active 2021 CHRISTINA Pickard [address], [address], [place], [address] , [facility] 4 11:10:54 Essential hypertensi on 16998482 Active 2023 CHRISTINA Pickard [address], [address], [place], [address] , [facility] 4 10:33:32 Herpes zoster 3601512 Active 2023 CHRISTINA Pickard [address], [address], [place], [address] , [facility] 4 12:24:39 Screening for malignant neoplasm of colon Active 2023 CHRISTINA Pickard [address], [address], [place], [address] , [facility] 4 11:12:32 At increased risk of nutritiona l deficit 986035242 Active 2023 CHRISTINA Pickard [address], [address], [place], [address] , [facility] 4 11:14:05 Hypothyroi dism 16602620 Active 2024 CHRISTINA Pickard [address], [address], [place], [address] , [facility] 5 12:30:17 Asthma without status asthmaticu s 01080073 Active 2024 Susana Carey RN null, [facility] [employer] [facility] 5 11:33:16 Allergic dispositio n 987674657 Active 2024 Celeste Madsen, KESHIA [address] [facility], [facility] [address], [place], [address] , [facility] [employer] [facility] 5 11:56:42 Problem Notes None recorded. Procedures Surgical History Date Name Laterality Status Provider Name and Address Organization Details Recorded Time removal of mole of skin by excision completed Not Available [facility] 05/31/2022 02:26:28 Prostatectomy completed Not Available [facility] 05/31/2022 02:26:28 Imaging Results None recorded. Procedure Notes None recorded. Medical Equipment None Reported. Allergies No known drug allergies Medications Name Sig Start Date Stop Date Status Note LastModified by Organization Details LastModified Time atorvasta tin 40 mg tablet TAKE 1 TABLET BY MOUTH EVERY DAY active Not Available Not Available No t Available bicalutam paul 50 mg tablet 09/05 completed Not Available Not Available Not Available prednison e 10 mg tablet 06/06 completed Not Available Not Available Not Available cetirizin e 10 mg tablet TAKE 1 TABLET BY MOUTH EVERY DAY DIRECTED 09/29 completed Not Available Not Available Not Available azithromy kelsie 250 mg tablet TK 2 TS PO ON DAY 1, THEN TK 1 T PO D FOR 4 DAYS 06/07 completed Not Available Not Available Not Available Lidocaine Viscous 2 % mucosal solution 06/07 completed Not Available Not Available Not Available valacyclo vir 1 gram tablet TAKE 1 TABLET BY MOUTH EVERY 12 HOURS FOR 7 DAYS 09/05 completed Not Available Not Available Not Available hydrocodo ne 5 mg-acetam inophen 325 mg tablet TAKE 1 TABLET BY MOUTH EVERY 6 HOURS NEEDED FOR PAIN 06/07 completed Not Available Not Available Not Available ondansetr on HCl 4 mg tablet 06/07 completed Not Available Not Available Not Available prednison e 20 mg tablet Take 2 tabs PO twice daily for 2 days; 1 tab PO twice daily for 5 days; 0.5mg PO twice daily for 2 days; 0.5mg PO once for 1 day. TAKE 2ND DOSE EVERYDAY AT NOON-10 DAY COURSE 09/18 completed Not Available Not Available Not Available prochlorp erazine maleate 10 mg tablet 06/07 completed Not Available Not Available Not Available ciproflox acin 500 mg tablet 09/29 completed Not Available Not Available Not Available aspirin 81 mg tablet,de layed release TK 1 T PO QD active Not Available Not Available No t Available prednison e 10 mg tablets in a dose pack Take 1 tab by mouth, 3 times a day for 3 daysTake 1 tab by mouth 2 times a day for 2 daysTake 1 tab by mouth once a day for 1 day 07/08 completed Not Available Not Available Not Available Kenalog 10 mg/mL suspensio n for injection In office injectio n administ ered by the provider 06/06 completed ND: [id number] 4-20 Not Available Not Available Not Available levothyro xine 50 mcg tablet TAKE 1 TABLET BY MOUTH EVERY DAY IN THE MORNING FOR HYPOTHYR OIDISM active Not Available Not Available No t Available dexametha sone 4 mg tablet 09/29 completed Not Available Not Available Not Available monteluka st 10 mg tablet TAKE 1 TABLET BY MOUTH EVERY DAY active Not Available Not Available No t Available lisinopri l 5 mg tablet TAKE 1 TABLET BY MOUTH EVERY DAY IN THE MORNING active Not Available Not Available No t Available methylpre dnisolone 4 mg tablets in a dose pack FOLLOW PACKAGE DIRECTIO NS 06/07 completed Not Available Not Available Not Available albuterol sulfate HFA 90 mcg/actua tion aerosol inhaler INHALE 2 PUFFS BY MOUTH EVERY 4 HOURS NEEDED active Not Available Not Available No t Available PreviDent 5000 Plus 1.1 % cream USE DIRECTED 09/29 completed Not Available Not Available Not Available fluticaso ne propionat e 50 mcg/actua tion nasal spray,ba[employer] SHAKE LIQUID AND USE 1 SPRAY IN EACH NOSTRIL EVERY DAY DIRECTED 06/07 completed Not Available Not Available Not Available lisinopri l 2.5 mg tablet TAKE 1 TABLET BY MOUTH EVERY DAY 09/05 completed dose adjustme nt Not Available Not Available Not Available chlorhexi dine gluconate 0.12 % mouthwash TAKE BY MOUTH DIRECTED 09/29 completed Not Available Not Available Not Available Symbicort 160 mcg-4.5 mcg/actua tion HFA aerosol inhaler Inhale 2 puffs twice a day by inhalati on route. 06/17 completed Not Available Not Available Not Available Zyrtec 10 mg capsule Take 1 capsule every day by oral route. 01/18 completed Not Available Not Available Not Available ropivacai ne (PF) 5 mg/mL (0.5 %) injection solution Take 20 mg by injectio n route. 06/06 completed Not Available Not Available Not Available Arnuity Ellipta 100 mcg/actua tion powder for inhalatio n INHALE 1 PUFF BY MOUTH EVERY DAY DIRECTED 10/24 completed Too expensiv e , gave sample geoff Willistrkenan Not Available Not Available Not Available Qvar RediHaler 80 mcg/actua tion HFA breath activated aerosol Inhale 2 puffs twice a day by inhalati on route for 30 days. active Not Available Not Available No t Available Fluarix Quad (PF) 60 mcg (15 mcg x 4)/0.5 mL IM syringe active Not Available Not Available Not Available Breztri Aerospher e 160 mcg-9mcg- 4.8mcg/ac tuation HFA aerosol inhaler Inhale 2 puffs twice a day by inhalati on route for 30 days. 09/18 completed Not Available Not Available Not Available Vitals Date Recorded Body height Body mass index (BMI) Body weight Body temperature Heart rate Respiratory rate Oxygen saturation Oxygen saturation in Arterial blood by Pulse oximetry Systolic And Diastolic Provider Name and Address Organization Details Last Updated DateTime 4 193.04 cm 21.1 kg/m2 61358.4 8 g 97.8 [degF] 95 /min 16 /min 98 % 98 % 134/76 mm[Hg] Hillary Steele RN [place] [facility] 4 12:15:36 Date Recorded Body height Body mass index (BMI) Body weight Body temperature Heart rate Oxygen saturation Oxygen saturation in Arterial blood by Pulse oximetry Respiratory rate Systolic And Diastolic Provider Name and Address Organization Details Last Updated DateTime 4 193.04 cm 21.8 kg/m2 14625.0 3 g 97.7 [degF] 66 /min 94 % 94 % 16 /min 112/76 mm[Hg] Mary Shaffer RN [facility] 4 10:54:07 Date Recorded Systolic And Diastolic Provider Name and Address Organization Details Last Updated DateTime 09/18/2024 110/78 mm[Hg] Kelvin Hare, FN P [address] [facility], [facility] [address], [place], [address], [facility] 09/18/2024 10:52:38 Date Recorded Body height Body mass index (BMI) Body weight Body temperature Heart rate Respiratory rate Oxygen saturation Oxygen saturation in Arterial blood by Pulse oximetry Provider Name and Address Organization Details Last Updated DateTime 5 193.04 cm 21.9 kg/m2 81102.0 3 g 97.1 [degF] 107 /min 20 /min 93 % 93 % Ronel Chu RN [facility] 5 10:35:32 Date Recorded Body height Body mass index (BMI) Body weight Body temperature Heart rate Oxygen saturation Oxygen saturation in Arterial blood by Pulse oximetry Systolic And Diastolic Provider Name and Address Organization Details Last Updated DateTime 5 193.04 cm 22 kg/m2 31802.5 g 97.8 [degF] 109 /min 95 % 95 % 110/66 mm[Hg] Susana Carey RN [facility] [employer] [facility] 5 11:40:18 Date Recorded Body height Body mass index (BMI) Body weight Body temperature Heart rate Oxygen saturation Oxygen saturation in Arterial blood by Pulse oximetry Systolic And Diastolic Provider Name and Address Organization Details Last Updated DateTime 4 193.04 cm 22.4 kg/m2 21376 g 96.7 [degF] 109 /min 98 % 98 % 118/74 mm[Hg] Mary Shaffer RN [facility] [employer] [facility] 4 09:45:49 Social History Question Answer Notes LastModified by Organizat ion Details LastModified Time Tobacco Smoking Status Never Smoker Not Available [facility] 05/31/2022 02:25:10 Do You Have An Advance Directive? No MIGRATION.01325 [id number] Information not available 05/31/2022 Are You Blind Or Do You Have Difficulty Seeing? No MIGRATION.60285 07963 Information not available 05/31/2022 What Is Your Level Of Caffeine Consumption? Occasional 1 Cup Daily Information not available 09/18/2024 In The 14 Days Before Symptom Onset, Have You Had Close Contact With A Laboratory-confi rmed COVID-19 While That Case Was Ill? No MIGRATION.04538 50803 Information not available 05/31/2022 In The 14 Days Before Symptom Onset, Have You Had Close Contact With A Person Who Is Under Investigation For COVID-19 While That Person Was Ill? No MIGRATION.06358 22611 Information not available 05/31/2022 Are You Deaf Or Do You Have Serious Difficulty Hearing? No MIGRATION.60897 11052 Information not available 05/31/2022 What Type Of Diet Are You Following? REGULAR MIGRATION.42588 52071 Information not available 05/31/2022 Do You Have An Electrostatic Air Filter? Yes MIGRATION.06524 80248 Information not available 05/31/2022 Have There Been Any Changes To Your Family Or Social Situation? No Information not available 09/18/2024 Are There Any Guns Present In Your Home? No Information not available 09/18/2024 Do You Have A Humidifier? Yes MIGRATION.57505 54613 Information not available 05/31/2022 Do You Use Insect Repellent Routinely? No Information not available 09/18/2024 Where Do You Live? [facility] MIGRATION.10591 83543 Information not available 05/31/2022 Do You Have A Medical Power Of Geospatial Program Management Officer? No MIGRATION.22024 65181 Information not available 05/31/2022 Do You Have Moisture Problems In Your Home? No MIGRATION.05892 79617 Information not available 05/31/2022 What Was The Date Of Your Most Recent Tobacco Screening? 08/11/2021 MIGRATION.73008 26681 Information not available 05/31/2022 Have You Ever Been Counseled For Unhealthy Alcohol Use? No MIGRATION.03844 25803 Information not available 05/31/2022 Do You Have Any Pets? No MIGRATION.02011 33894 Information not available 05/31/2022 What Is Your Relationship Status? MIGRATION.96665 89777 Information not available 05/31/2022 Do You Use Your Seat Belt Or Car Seat Routinely? Yes MIGRATION.35082 99678 Information not available 05/31/2022 Do You Have Smoke And Carbon Monoxide Detectors In Your Home? Yes MIGRATION.05692 97564 Information not available 05/31/2022 Are You Passively Exposed To Smoke? No MIGRATION.16710 00943 Information not available 05/31/2022 Are There Any Smokers In Your House? No Information not available 09/18/2024 Do You Participate In Social Media? No Information not available 09/18/2024 Do You Use Sunscreen Routinely? Yes Information not available 09/18/2024 Has Tobacco Cessation Counseling Been Provided? No MIGRATION.81912 92565 Information not available 05/31/2022 Have You Recently Traveled Abroad? No MIGRATION.52357 94120 Information not available 05/31/2022 Do You Have Difficulty Walking Or Climbing Stairs? No MIGRATION.78383 27967 Information not available 05/31/2022 Do You Have Any Dietary Restrictions? No MIGRATION.97080 12044 Information not available 05/31/2022 Sex: Unknown Functional Status Question Answer Note LastModified by Organizat ion Details LastModified Time Do you use any illicit or recreational drugs? No MIGRATION.97799 18847 Information not available 05/31/2022 Do you or have you ever used any other forms of tobacco or nicotine? No MIGRATION.24853 96830 Information not available 05/31/2022 What is your level of alcohol consumption? Occasional MIGRATION.45218 71234 Information not available 05/31/2022 Do you or have you ever used smokeless tobacco? Never used smokeless tobacco MIGRATION.54837 23518 Information not available 05/31/2022 Are you currently employed? No retired Information not available 09/18/2024 Do you have transportation difficulties? No MIGRATION.85271 28417 Information not available 05/31/2022 Are you able to walk? [place] MIGRATION.18692 37346 Information not available 05/31/2022 Do you have difficulty doing errands alone? No MIGRATION.72103 02142 Information not available 05/31/2022 Are you able to care for yourself? Yes MIGRATION.05622 11462 Information not available 05/31/2022 Do you have difficulty dressing or bathing? No MIGRATION.09504 85403 Information not available 05/31/2022 Do you or have you ever used e-cigarettes or vape? Never used electronic cigarettes MIGRATION.26478 28641 Information not available 05/31/2022 What is your exercise level? Moderate MIGRATION.76436 90751 Information not available 05/31/2022 Mental Status Question Answer Note LastModified by Organizat ion Details LastModified Time Do you feel stressed (tense, restless, nervous, or anxious, or unable to sleep at night)? HS2371-1 Information not available 09/18/2024 Do you have difficulty concentrating, remembering or making decisions? No MIGRATION.19736087 26 Information not available 05/31/2022 Family History Relationship Description Onset Age of this Age Resolved Age Notes LastModified by Organization Details LastModified Time Father No current problems or disability MIGRATION.214 [id number] Not available 05/31/2022 02:26:30 Mother No current problems or disability MIGRATION.404 [id number] Not available 05/31/2022 02:26:30 Medical History Condition Response CANCER: SPECIFY Y HAVE YOU BEEN HOSPITALIZED OR SEEN IN [facility] IN THE PAST YEAR ? Y RADIATION / CHEMOTHERAPY Y HYPERTENSION Y STROKE/TIA Y Immunizations Vaccine Type Date Status Note Provider [facility] e and Address Organization Details Recorded Time COVID-19, mRNA, LNP-S, PF, 30 mcg/0.3 mL dose 1 completed Not Available [facility] 05/31/2022 02:32:20 Influenza, split virus, quadrivalent, preservative 1 completed Not Available [facility] 05/31/2022 02:32:20 COVID-19, mRNA, LNP-S, PF, 100 mcg/0.5mL dose or 50 mcg/0.25mL dose 1 completed Not Available [facility] 05/31/2022 02:32:20 SARS-COV-2 (COVID-19) vaccine, UNSPECIFIED 1 completed Not Available [facility] 05/31/2022 02:32:20 Influenza, split virus, quadrivalent, preservative 0 completed Not Available [facility] 05/31/2022 02:32:20 Influenza, split virus, quadrivalent, preservative 0 completed Not Available [facility] 05/31/2022 02:32:20 Past Encounters Encounter ID Performer Location Encounter Start Date Encounter Closed Date Diagnosis/Indication Diagnosis SNOMED-CT Code Diagnosis ICD10 Code Diagnosis Note [id number] Radha Germain, CURRICULUM FACILITATOR- [facility] [place] [address] [place] [address] 06/17/2020 00:00:00 06/17/2020 12:15:44 [id number] [facility] [place] [address] [place] [address] 08/04/2020 00:00:00 08/04/2020 16:23:56 [id number] [facility] [place] [address] [place] [address] 12/07/2020 00:00:00 12/07/2020 14:27:37 [id number] Brinda Craig MD [facility] [address] [place] [address] 01/18/2021 00:00:00 01/18/2021 15:06:23 [id number] [facility] [place] [address] [place] [address] 06/07/2021 00:00:00 06/07/2021 15:12:39 [id number] Brinda Craig MD [facility] [address] [place] [place] [address] 08/09/2021 00:00:00 08/10/2021 09:10:26 [id number] Lynn DPM [facility] [place] [address] [facility] [address] [place] [address] 08/11/2021 00:00:00 08/12/2021 13:12:47 [id number] Tavon Lynn DPM [facility] [place] [address] [place] [address] 09/01/2021 00:00:00 09/01/2021 17:15:47 [id number] Brinda Craig MD [facility] [place] [address], [place] [address] 09/08/2021 00:00:00 09/08/2021 12:52:13 [id number] Delroy Moe MD [facility] [place] [address] [facility] [address] [place] [address] 09/29/2021 00:00:00 09/29/2021 11:47:05 [id number] Delroy Moe MD [facility] [place] [address] [facility] [address] [place] [address] 10/20/2021 00:00:00 10/20/2021 11:08:48 [id number] Tavon Lynn DPM [facility] [place] [address] [place] [address] 11/17/2021 00:00:00 11/17/2021 16:42:35 [id number] Tavon Lynn DPM [facility] [place] [address] [place] [id number] 12/22/2021 00:00:00 12/22/2021 16:29:41 [id number] RAFFAELE Dixon IGRATION_ DEFAULT_1 _1 , 02/06/2022 00:00:00 02/07/2022 09:51:54 [id number] RAFFAELE DixonATHENA_Lesa IGRATION_ DEFAULT_1 _1 , 03/06/2022 00:00:00 03/07/2022 09:30:10 [id number] Brinda Craig MD [facility] [place] [address], [place] [address] 05/10/2023 09:48:58 05/10/2023 10:23:42 Renewal of prescription 490898863 Z76.0 Hyperlipidemia 86321630 E78.5 Asthma 137906196 J45.90 9 Allergic rhinitis 617842 04 J30.9 History of cerebrovascular accident 996191589 Z86.73 Hypertensive disorder 38 565603 I10 [id number] Brinda Craig MD [facility] [place] [address] [facility] [place] [address] 06/07/2023 10:10:19 06/07/2023 10:41:19 Essential hypertension 89354423 I10 Allergic rhinitis 889349 04 J30.9 Asthma 821531298 J45.90 9 Deviated nasal septum 12 4841413 J34.2 Hyperlipidemia 35642038 E78.5 Pulmonary emphysema 8743 3001 J43.9 [id number] Kip Leger MD [facility] [place] [address] [place] [address] [place] [address] 07/09/2023 12:11:07 07/09/2023 12:27:11 Herpes zoster 6221209 B02.9 Allergic rhinitis 950810 04 J30.9 Asthma 811978258 J45.90 9 Essential hypertension 59270791 I10 History of cerebrovascular accident 948854358 Z86.73 Hyperlipidemia 62926148 E78.5 Seasonal a llergic rhinitis 185698440 J30.2 Squamous c ell carcinoma 179504302 C80.1 [id number] Kip Leger MD [facility] [place] [address] [place] [address] [place] [address] 09/06/2023 10:46:29 09/06/2023 11:21:01 Essential hypertension 84506499 I10 Allergic rhinitis 229055 04 J30.9 Asthma 292481624 J45.90 9 Hyperlipidemia 36646489 E78.5 Screening for malignant neoplasm of colon 751552112 Z12.11 At community health risk of nutritional deficit 349030740 Z91.89 Pulmonary emphysema 8743 3001 J43.9 [id number] Kip Leger MD [facility] [address] [place] [address] 03/07/2024 09:39:28 03/07/2024 10:06:39 Essential hypertension 41957824 I10 Allergic rhinitis 126699 04 J30.9 Asthma 702192699 J45.90 9 History of cerebrovascular accident 539715521 Z86.73 Hyperlipidemia 75097091 E78.5 Malignant melanoma 07063 4006 C43.9 Pulmonary emphysema 8743 3001 J43.9 Squamous c ell carcinoma 958305948 C80.1 [id number] Kip Leger MD [facility] [address] [place] [address] 09/18/2024 10:19:39 09/18/2024 11:23:59 Essential hypertension 78717225 I10 Well controlled with current medication s, he does have the ability to monitor at home Asthma 252412431 J45.90 9 Not well controlled , states he feels there is mucous trapped in his chest Hyperlipidemia 24345830 E78.5 Well controlled on current med, will check labs at next visit Hypothyroidism 03849669 E03.9 Well controlled on current med, will check labs at next visit [id number] Celeste Madsen NP [facility] [place] [address] [place] [address] 10/07/2024 11:30:23 10/10/2024 13:05:59 Asthma without status asthmaticus 97706999 J45.909 Patient is very confused about a lot of his history-he denies having any breathing issuesACT on no maintenanc e inhaler: 24PFT completed 06/11/2020 abnormal with reading: Pre:FVC 5.4, 108%, FEV1 2.88, 78%, FEV1:FVC ratio 53%, Post: FVC6.14L w/13%incre ase, HKB0fg1,24 L, w/17% increase, TLC 10.6, 124% predicted functional residual capacity is 5.91, 132% predicted. Residual volume is 2,58, 74% predicted. , Absolute diffusion capacity 23.3, 84% predicted, diffusion capacity corrected for alveolar volume is 2.58, 74%Methach oline challenge was +/- with 00% drop at levelRAST allergy panel + mild to trees/IGE was 169CBC 03/2024 with - eosinophil sAsthma Action plan discussedU se Albuterol only PRN-if using more discussed need for re-evaluat ionIn depth discussion about s/s that require evaluation Return for test review of PFT Allergic disposition 651 494272 J30.89 Will restart his singulair to see if this helps his stuffiness in the morning Health Concerns Section Related Observation LastModified by Organization Detai ls LastModified Time None Recorded Concern Status LastModified by Organization Details LastModified Time None Recorded Advance Directives Directive N: Payers Insurance Date Sequence Insurance Name Policy Number Policy Rangel Covered Member ID Rangel Member ID Guarantor Name 09/18/2024 1 [facility] [employer] [facility] - DOS PRIOR TO 2024 (PPO) Christian Morton [id number] Christian Morton 10/10/2024 1 [employer] (PPO) [id number] Christian Morton [id number] Christian Morton Notes Date Note Type Note Provider Name and Address Organization Details Recorded Time 07/09/2023 text/html his got the shingles shot a month ago , offered to have him come along , he refused . CHRISTINA Pickard [email or web address], [place], [address], [employer] 07/18/2023 15:49:57 09/06/2023 text/html last month psa 0.1 CHRISTINA Schuster [email or web address], [place], [address], [employer] 09/26/2023 21:48:18 03/07/2024 text/html no changes ; doi ng well CHRISTINA Pickard [address], [place], [address], [employer] 03/23/2024 17:02:07 09/18/2024 text/html Christian Morton i s a 78 year old male patient here today to establish care. He was previously under the care of Deion Moe. Hyperlipidemia. This is well controlled.They are currently taking atorvastatin 40 mg. Denies muscle cramping.Advised to limit fatty/greasy foods and increase cardiovascular exercise History of hypertension. This is well controlled. Patient does not check BP readings at home.BP on arrival today is 110/78.He is taking lisinopril 5 mg.Patient declines headaches, tinnitus, light headedness, fatigue. History of hypothyroidism. Last TSH normal 03/2024. Currently managed with levothyroxine 50 mcg. He has a history of asthma, he is taking Qvar RediHaler 2 puff twice daily. 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 Flu shot: OVID vaccines: x3Tdap: unsure, 09/18/24Pneumonia vaccine: Believes he has completedShingrix: recommended at pharmacyPSA: managed by urology (Donell) every 3 months. Last level 0.3Colonoscopy: states service dismantler recommended against doing CHRIS Dash [address], [place], [address], [employer] 09/18/2024 11:24:26 10/07/2024 text/html Asthma F/UReport ed bypatient.Quality:sy mptoms worse during the day Severity:able to sleep during episode; does not interfere with daily activities; uses nebulizer/inhaler an average of 0 times/week lately Context:same Modifying Factors:allergies Associated Symptoms:no dyspnea; no orthopnea; no snoring; no cough; no wheezing; no edema; no chest pain; no paroxysmal nocturnal dyspnea; no daytime somnolence; no sputum production; no hemoptysis; no GERD; no sleep attacks;post nasal dripNotes:it appears patient is off his allergy meds-cetirizine per old chart was dc'd by oncology but his singular was continued. He feels he is stuffy in the morning but notes he has not had any issues breathing. Very difficult to get a good history. Celeste Madsen NP [address], [place], [address], [employer] 10/08/2024 09:45:45
--- OUTSIDE RECORDS SUMMARY | 2024-10-21 14:23 | XMS_ITS | Encounter Summary ---
Author Organization [facility] Healthcare Address [address] [place] [address] Care Team Providers Care Campus Security Officer Name Role Phone Yahir Marley MD Unavailable Yuri Rogel MD Unavailable Rosalie Ordoñez NP Unavailable Lai Bonilla MD Unavailable Javier Correa MD Unavailable Reinaldo Wilks MD Unavailable No, Physician Primary Care Provider Wilber Moe Primary Care Provider + Encounter Details Date Type Department Care Team (Late st Contact Info) Description 03/08/2023 Telephone [facility] Radiation Oncology [address] [facility] [place] [address] Elaine Lorenz RN Social History Tobacco Use [...] on file Legal Sex Male 1:48 AM DISPATCH SPECIALIST Gender Identity Not on file Sexual Orientation Not on file documented as of this encounter Plan of Treatment Not on file documented as of this encounter Visit Diagnoses Not on filedocumented in this encounter Care Teams Campus Security Officer Relationship Specialty Start Date End Date No, Physician PCP - General 05/30/22 06/18/23 Wilber Moe PA [address] [place] [address] PCP - General Internal Medicine 06/19/23 Yahir Marley MD Radiation Oncologist Radiation Oncology 08/07/18 Yuri Rogel MD Referring Physician Urology 08/07/18 Rosalie Ordoñez NP [address] [facility] [address] [place] [address] Nurse Practitioner Radiation Oncology 04/17/19 Lai Bonilla MD [address] [facility] [address] [place] [address] Medical Oncologist/Senior Project Engineer Medical Oncology 04/21/21 06/22/24 Javier Correa MD [address] [facility] DEPT OTOLARYNGOLOGY, [address] [address] Consulting Physician Otolaryngology 04/21/21 Reinaldo Wilks MD [address] [facility] DEPT OTOLARYNGOLOGY, [address] [address] Consulting Physician Radiation Oncology 04/21/21 documented as of this encounter
--- OUTSIDE RECORDS SUMMARY | 2024-10-21 14:23 | XMS_ITS | Continuity of Care Document ---
Author Name [facility] Organization [facility] Care Team Providers Care Line Camera Operator Name Role Phone [facility] Unavailable Unavailable Encounters Combined list of: 1) Encounters from Department of Veterans Affairs facilities going backup to the last 18 months, not all [facility] inpatient encounters are included; 2) Encounters from the Department of Defense facilities going backup to 280 months. Location Location Details Encounter Type Encounter Number Reason For Visit Attending Provider ADM Date DC Date Status Disposition Source [facility] Outpatient Encounter [id number]
--- OUTSIDE RECORDS SUMMARY | 2024-10-21 14:24 | XMS_ITS | Referral Summary ---
Author Organization [facility] Address [address] [place] [address] Care Team Providers Care Foster Care Case Manager Name Role Phone Yahir Marley MD Unavailable [phone] Yuri Rogel MD Unavailable Rosalie Ordoñez NP Unavailable Javier Correa MD Unavailable Reinaldo Wilks MD Unavailable Wilber Moe Primary Care Provider + Encounters Date Type Department Care Team Description 08/05/2024 11:00 AM CDT Office Visit [facility] Radiation Oncology [address] [facility] [place] [address] Rosalie Ordoñez NP Prostate CA (HCC) (Primary Dx) 08/05/2024 11:00 AM CDT Clinical Support [facility] Radiation Oncology [address] [place] [address] Prostate cancer (HCC) (Primary Dx) from Last 3 Months Allergies No known active allergies Medications aspirin 81 mg tablet TK 1 T PO QD in AM 0 8 Active atorvastatin (LIPITOR) 40 mg tablet TK 1 T PO in PM 0 8 Active lisinopriL (PRINIVIL,ZEST RIL) 5 mg tablet Take 1 tablet (5 mg total) by mouth every morning 4 Active budesonide-gly copyr-formoter ol (BREZTRI) 160-9-4.8 mcg/actuation inhaler Inhale 2 puffs twice a day by inhalation route for 30 days. 4 Active albuterol HFA (PROVENTIL HFA,VENTOLIN HFA,PROAIR HFA) 90 mcg/actuation inhaler 2 puffs every 4 (four) hours as needed 5 Active Qvar RediHaler 80 mcg/actuation inhaler INHALE 2 PUFFS BY MOUTH TWICE DAILY - RINSE MOUTH AFTER SECOND PUFF AND SPIT ALWAYS 5 Active levothyroxine (SYNTHROID) 50 mcg tablet TAKE 1 TABLET BY MOUTH EVERY DAY IN THE MORNING FOR HYPOTHYROIDISM 5 Active predniSONE (DELTASONE) 20 mg tablet 5 Active Active Problems Problem Noted Date Diagnosed Date Herpes zoster 07/09/2023 Rupture of Achilles tendon 01/19/2022 Insertional Achilles tendinopathy 11/17/2021 Pain in joint of right shoulder 10/20/2021 Achilles tendinitis 08/12/2021 Sprain of right ankle 08/12/2021 Severe malnutrition 07/30/2021 Tongue cancer 07/26/2021 Fever 07/26/2021 Assessment & Plan (07/26/2021 11:48 PM CDT): T 38.0 after arrival to the floor. Reports fatigue, but otherwise no localizing infectious symptoms. ANC 2200 on admission. -check RVP, blood cultures, UA -CXR clear -abx: empiric vancomycin and cefepime (07/26 - ) Fatigue 07/26/2021 Assessment & Plan (07/26/2021 11:49 PM CDT): Likely related to anemia, poor PO intake, physical deconditioning, possibly infection. -PT/OT evals -fall precautions -HOSPICE SPIRITUAL CARE COORDINATOR eval -RD consult -infectious workup as elsewhere -management of pancytopenia as elsewhere Hypophosphatemia 07/26/2021 Assessment & Plan (07/26/2021 11:47 PM CDT): Phos 1.6 on admission. -replace per protocol Pancytopenia 07/26/2021 Assessment & Plan (07/26/2021 11:47 PM CDT): Likely multifactorial including treatment with chemotherapy, nutritional deficiencies. -trend CBC, transfuse per protocol Dehydration 07/08/2021 Squamous cell carcinoma of base of tongue 2021 Cancer Staging:Clinical:Stage II(cT1, cN2, cM0, p16+) - Unsigned Overview (09/20/2021): 1. 07/11/21, completed DCRT(Irene/Johnstsharifa) Assessment & Plan (07/26/2021 11:50 PM CDT): S/p 3 cycles of cisplatin + RT. -Med Onc c/s -HOSPICE SPIRITUAL CARE COORDINATOR eval -PT/OT evals -Dietitian consult, full liquid diet for now -Given reported poor PO intake and episodes of dehydration despite scheduled outpatient IVF infusions, patient may require G-tube for supplemental nutrition. 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 Previously was on lisinopril 2.5; however, patient states he has not needed to take BP meds recently. -CTM Malignant melanoma 12/01/2019 Seasonal allergic rhinitis 12/01/2019 Prostate cancer 08/03/2017 Cancer Staging:Clinical stage from 07/25/2017:Stage IIC(cT2a, cN0, cM0, PSA: 8, Grade Group: 3) - Signed by Enoch Shaw MD PhD on 08/07/2018 Pathologic stage from 12/11/2017:Stage IIIB(pT3b, pN0, cM0, PSA: 8, Grade Group: 3) - Signed by Enoch Shaw MD PhD on 08/07/2018 Overview (09/07/2020): Added automatically from request for surgery [id number] Resolved Problems Problem Noted Date Diagnosed Date Resolved Date PRIYANKA (acute kidney injury) 07/26/2021 Assessment & Plan (07/26/2021 11:53 PM CDT): Cr 1.54 on admission. Baseline appears to be around 1.0. Likely prerenal d/t poor PO intake. -Give additional IVF and recheck -Trend BMP -renally dose meds Primary tongue squamous cell carcinoma 04/27/2021 04/27/2021 Cancer Staging:Unsigned Chronic cough 05/20/2020 06/27/2024 Immunizations Immunization Administration Dates Next Due Influenza, Quadrivalent, Spl it, Intramuscular 01/17/2021,03/23/2020,12/31/2019 Influenza, Quadrivalent, Spl it, Preservative Free, Intramuscular 01/09/2020 Moderna SARS-CoV-2 Monovalen t Vaccination (12+ YRS) 01/07/2021 Pfizer SARS-CoV-2 Monovalent Vaccination (12+ Yrs) PURPLE 06/04/2020 Sars-CoV-2, Unspecified 05/14/2020 Social History Tobacco Use Types Packs/Day Years Used Date Smoking Tobacco: Never Smokeless Tobacco: Never Chew Quit: 1965 Tobacco Cessation:Counseling Given: Not Answered Alcohol Use Standard Drinks/Week Comments Yes 0 [...] on file Legal Sex Male 1:48 AM [employer] Gender Identity Not on file Sexual Orientation Not on file Last Filed Vital Signs Vital Sign Reading Time Taken Comments Blood Pressure 122/77 01/22/2024 10:27 AM CDT Pulse 89 01/22/2024 10:27 AM CDT Temperature 36.8 C (98.2 F) 01/22/2024 10:27 AM CDT Respiratory Rate 18 01/22/2024 10:27 AM CDT Oxygen Saturation 98% 01/22/2024 10:27 AM CDT Inhaled Oxygen Concentration - - Weight 84 kg (185 lb 3.2 oz) 08/05/2024 11:00 AM CDT Height 188.6 cm (6' 2.25) 06/27/2024 11:34 AM C DT Body Mass Index 23.62 06/27/2024 11:34 AM CDT Plan of Treatment Not on file Procedures Procedure Name Priority Date/Time Associated Diagnosis Comments PSA, TOTAL AND FREE Routine 07/28/2024 9 :09 AM CDT Malignant neoplasm of prostate (HCC) TOTAL TESTOSTERONE Routine 07/28/2024 9: 09 AM CDT Malignant neoplasm of prostate (HCC) CT ABDOMEN PELVIS W CONTRAST Schedule Routine, Read Routine (OP Routine) 12/23/2020 12:32 PM CDT Prostate cancer (HCC) from Last 3 Months or Most Recently Relevant to Health Maintenance Results * PSA, total and free (07/28/2024 9:09 AM CDT) PSA 0.3 < OR = 4.0 ng/mL [facility] PSA, free 0.1 ng/mL [facility] PSA, free 33 >25 % (calc) [facility] Comment: PSA(ng/mL) Free PSA(%) Estimated(x) Probability of Cancer(as%) 0-2.5 (*) Approx. 1 2.6-4.0(1) 0-27(2) 24(3) 4.1-10(4) 0-10 56 11-15 28 16-20 20 21-25 16 >or =26 8 >10(+) N/A >50 References:(1)Jina et al.:Urology 60: 469-474 (2001) (2)Jina et al.:J.Urol 168: 922-925 (2001) Free PSA(%) Sensitivity(%) Specificity(%) < or = 25 85 19 < or = 30 93 9 (3)Jina et al.:GALI 277: 3887-3615 (1996) (4)Catalona et al.:GALI 279: 0722-4420 (1997) (x)These estimates vary with age, ethnicity, family history and DENISSE results. (*)The diagnostic usefulness of % Free PSA has not been established in patients with total PSA below 2.6 ng/mL (+)In men with PSA above 10 ng/mL, prostate cancer risk is determined by total PSA alone. The Total PSA value from this assay system is standardized against the equimolar PSA standard. The test result will be approximately 20% higher when compared to the WHO-standardized Total PSA (Siemens assay). Comparison of serial PSA results should be interpreted with this fact in mind. PSA was performed using the Zackery Russell Immunoassay method. Values obtained from different assay methods cannot be used interchangeably. PSA levels, regardless of value, should not be interpreted as absolute evidence of the presence or absence of disease. Blood 07/28/2024 9:0 9 AM CDT 07/28/2024 9:09 AM CDT [facility] - 07/30/2024 12:19 PM CDT FASTING:NO FASTING: NO us Rosalie Ordoñez NP LAB BLOOD ORDERABLES Final Result [facility] [address] [place] [address] * (ABNORMAL) Total testosterone (07/28/2024 9:09 AM CDT) Testosterone <10(L) 250 - 827 ng/dL [facility] Comment: In hypogonadal males, Testosterone, Total, LC/MS/MS, is the recommended assay due to the diminished accuracy of immunoassay at levels below 250 ng/dL. This test code (61938) must be collected in a red-top tube with no gel. Blood 07/28/2024 9:09 AM CDT 07/28/2024 9:09 AM CDT Narrative [facility] - 07/30/2024 12:19 PM CDT FASTING:NO FASTING: NO us Rosalie Ordoñez NP LAB BLOOD ORDERABLES Final Result [facility] [address] [place] [address] * CT abdomen pelvis with contrast (12/23/2020 12:32 PM CDT) Anatomical Region Laterality Modality Body N/A Computed Tomogra phy 12/23/2020 1:06 PM CDT Impressions 12/23/2020 1:06 PM CDT 1. Indeterminate low-attenuation area in segment 6 of the liver. Bilateral kidney cysts. No evidence of metastatic disease otherwise. Electronically signed by: Jose L Adams M.D. Narrative 12/23/2020 1:06 PM CDT EXAMINATION: Computed tomography of the abdomen and pelvis with intravenous contrast material. HISTORY: Prostate cancer. Rising PSA. TECHNIQUE: CT scan of the abdomen and pelvis was performed after the uneventful administration of 100 mL of Optiray 350 following standard technique. Lung bases: Patchy areas of groundglass infiltrate are seen in the lower portion of the right middle lobe with a 3 mm pulmonary nodule image #9. Bibasilar areas of linear atelectasis are seen. No pericardial effusion. No pleural effusion. ABDOMEN:. There is atrophy of the left hemiliver. The gallbladder is present, is retracted but normal. Within segment 6 of the liver, image 89, there is a 1 cm indeterminate low-attenuation nodule. The spleen is present and is normal. Normal adrenal glands bilaterally. Bilateral kidney cysts. The tail, body, and head of the pancreas are unremarkable. Stomach, small and large bowel are normal. Normal-sized lymph nodes are seen in the retroperitoneum and in the mesentery. Atherosclerotic changes of the abdominal aorta. Pelvis: Radiation metallic seeds are seen in the prostate. There is no pelvic lymphadenopathy. Urinary bladder demonstrates some thickening of its wall, which could be the result of obstructive hypertrophy. There is no inguinal lymphadenopathy. Bones: There is no evidence of bone metastasis. There are degenerative changes seen throughout the lumbar spine Procedure Note Jose L Adams MD - 12/23/2020 EXAMINATION: Computed tomography of the abdomen and pelvis with intravenous contrast material. HISTORY: Prostate cancer. Rising PSA. TECHNIQUE: CT scan of the abdomen and pelvis was performed after the uneventful administration of 100 mL of Optiray 350 following standard technique. Lung bases: Patchy areas of groundglass infiltrate are seen in the lower portion of the right middle lobe with a 3 mm pulmonary nodule image #9. Bibasilar areas of linear atelectasis are seen. No pericardial effusion. No pleural effusion. ABDOMEN:. There is atrophy of the left hemiliver. The gallbladder is present, is retracted but normal. Within segment 6 of the liver, image 89, there is a 1 cm indeterminate low-attenuation nodule. The spleen is present and is normal. Normal adrenal glands bilaterally. Bilateral kidney cysts. The tail, body, and head of the pancreas are unremarkable. Stomach, small and large bowel are normal. Normal-sized lymph nodes are seen in the retroperitoneum and in the mesentery. Atherosclerotic changes of the abdominal aorta. Pelvis: Radiation metallic seeds are seen in the prostate. There is no pelvic lymphadenopathy. Urinary bladder demonstrates some thickening of its wall, which could be the result of obstructive hypertrophy. There is no inguinal lymphadenopathy. Bones: There is no evidence of bone metastasis. There are degenerative changes seen throughout the lumbar spine IMPRESSION: 1. Indeterminate low-attenuation area in segment 6 of the liver. Bilateral kidney cysts. No evidence of metastatic disease otherwise. Electronically signed by: Jose L Adams M.D. Rosalie Ordoñez FOURDRINIER MACHINE OPERATOR IMG CT PROCEDURES Final Res ult from Last 3 Months or Most Recently Relevant to Health Maintenance Insurance [facility] MEDICARE [facility] MEDICARE [facility] MEDICARE [facility] [id number] Advance Directives For more information, please contact: [phone] * Full Code (Latest Code Status on File) Date Activated Date Inactivated Comments 06/02/2022 11:54 AM 06/02/2022 5:10 PM * Full Code Date Activated Date Inactivated Comments 07/26/2021 8:02 PM 07/30/2021 11:08 PM * Full Code Date Activated Date Inactivated Comments 12/11/2017 10:07 PM 12/12/2017 2:03 PM Care Teams Foster Care Case Manager Relationship Specialty [place] [address] [place] [id number] PCP - General Internal Medicine 06/19/23 Yahir Marley MD Radiation Oncologist Radiation Oncology 08/07/18 Yuri Rogel MD Referring Physician Urology 08/07/18 Rosalie Ordoñez FOURDRINIER MACHINE OPERATOR [address] [facility] [address] [place] [address] Nurse Practitioner Radiation Oncology 04/17/19 Javier Correa MD [address] DEPT OTOLARYNGOLOGY, [address] [address] Consulting Physician Otolaryngology 04/21/21 Reinaldo Wilks MD [address] DEPT OTOLARYNGOLOGY, [address] [address] Consulting Physician Radiation Oncology 04/21/21
--- OUTSIDE RECORDS SUMMARY | 2024-10-21 14:24 | XMS_ITS ---
Author Organization [facility] Address [address] [place] [address] Care Team Providers Care [place] Name Role Phone Yahir Marley MD Unavailable Yuri Rogel MD Unavailable Rosalie Ordoñez NP Unavailable Javier Correa MD Unavailable Reinaldo Wilks MD Unavailable Wilber Moe Primary Care Provider + Active Problems Problem Noted Date Diagnosed Date [...] deconditioning, possibly infection. -PT/OT evals -fall precautions -BLOCKMASON eval -RD consult -infectious workup as elsewhere [...] - Unsigned Overview (09/20/2021): 1. 07/11/21, completed DCRT(Bon[place]) Assessment & Plan (07/26/2021 11:50 PM CDT): S/p 3 cycles of cisplatin + RT. -Med Onc c/s -BLOCKMASON eval -PT/OT evals -Dietitian consult, full liquid [...] (09/07/2020): Added automatically from request for surgery [id number] Current Treatment and Therapy Plans Eligard Injection - 45 mg every 24 weeks* Plan Start Date:08/06/2023 Plan Provider:Yahir Marley MD Linked Problems Prostate cancer (HCC) Treatment Medications leuprolide acetate (6 month) (ELIGARD) Other Current Plans Hydration Therapy Plan* Plan Start Date:07/25/2021 Plan Provider:Reinaldo Wilks MD Linked Problems Dehydration Treatment Medications No medications scheduled. Past Treatment and Therapy Plans Oncology Chemotherapy Treatment Plan Name Start Date Discontinue Date Treatment Medications Discontinue Reason Plan Provider Cycles CISplatin with Concurrent Radiation 21 Day Cycles - Head and Neck 2 09/20/2021 CISplatin (PLATINOL) IVPB in 250 mL Therapy Complete Lai Bonilla MD 3 of 3 cycles started Oncology Supportive Care Therapy Plan Plan Name Start Date Discontinue Date Treatment Medications Discontinue Reason Plan Provider MIRIAMGARD 22.5 MG = DR NAIR 2018 01/30/2023 leuprolide (ELIGARD) Therapy Complete Low Nair MD PhD Radiation Treatments (No Episode) * Course [id number] 03/08/2023 - 04/19/2023 Treatment Period Energy Fraction Dose Fractions Total Dose Plans Planned P2 ABD r1.1 03/23/2023 - 04/19/2023 220 17 / 3,740 P2 ABD r1 03/15/2023 - 03/22/2023 220 6 / 5,060 P2 ABDOMEN 03/08/2023 - 03/14/2023 220 5 / 6,160 Reference Points Delivered P2 ABDOMEN 03/08/2023 - 04/19/2023 6,166 * Course [id number]_202105/24/2021 - 07/11/2021 Treatment Period Energy Fraction Dose Fractions Total Dose Plans Planned BILAT HN 05/24/2021 - 07/11/2021 200 35 / 7,000 Reference Points Delivered hn dpv 05/24/2021 - 07/11/2021 7,000 * Course C1_Prost_2019 10/17/2018 - 05/23/2021 Treatment Period Energy Fraction Dose Fractions Total Dose Plans Planned PELVIS 05/23/2021 - 05/23/2021 180 25 / 4,500 Prostate 05/23/2021 - 05/23/2021 180 12 / 2,160 Reference Points Delivered [id number] 05/23/2021 - 05/23/2021 2,160 [id number]_4500 05/23/2021 - 05/23/2021 4,500 * Course C1 10/17/2018 - 12/09/2018 Treatment Period Energy Fraction Dose Fractions Total Dose Plans Planned Prostate 11/21/2018 - 12/09/2018 180 12 / 2,160 PELVIS 10/17/2018 - 11/20/2018 180 25 / 4,500 Reference Points Delivered [id number] 11/21/2018 - 12/09/2018 2,160 [id number]_4500 10/17/2018 - 11/20/2018 4,500 Lifetime Dose Tracking * Chemical Lifetime Dose Automatic Entry Manual Entr y Fluoro Time 1.1 minutes 1.1 minutes 0 minutes Air kerma at the reference point (Ka,r) 4.9 mGy 4 .9 mGy 0 mGy DLP 2,056 mGycm 2,056 mGycm 0 mGycm Resolved Problems Problem Noted Date Diagnosed Date [...]
--- OUTSIDE RECORDS SUMMARY | 2024-10-21 14:24 | XMS_ITS | Clinical Summary ---
Author Organization [facility] Address [address] [place] [address] Care Team Providers Care Receiver Bulk System Name Role Phone Yahir Marley MD Unavailable Yuri Rogel MD Unavailable Rosalie Ordoñez NP Unavailable Javier Correa MD Unavailable Reinaldo Wilks MD Unavailable Wilber Moe Primary Care Provider + Allergies No known active allergies Medications aspirin [...] deconditioning, possibly infection. -PT/OT evals -fall precautions -TRANSITION SOCIAL WORKER eval -RD consult -infectious workup as elsewhere [...] - Unsigned Overview (09/20/2021): 1. 07/11/21, completed DCRT(Irene/Lashaun) Assessment & Plan (07/26/2021 11:50 PM CDT): S/p 3 cycles of cisplatin + RT. -Med Onc c/s -TRANSITION SOCIAL WORKER eval -PT/OT evals -Dietitian consult, full liquid [...] (09/07/2020): Added automatically from request for surgery [id number] Resolved Problems Problem Noted Date Diagnosed Date Resolved Date PRIYANKA (acute kidney injury) 07/26/2021 Assessment & Plan (07/26/2021 11:53 PM CDT): Cr 1.54 on admission. Baseline appears to be around 1.0. Likely prerenal d/t poor PO intake. -Give additional IVF and recheck -Trend BMP -renally dose meds Primary tongue squamous cell carcinoma 04/27/2021 04/27/2021 Cancer Staging:Unsigned Chronic cough 05/20/2020 06/27/2024 Encounters Date Type Department Care Team Description 08/05/2024 11:00 AM CDT Office Visit [facility] Radiation Oncology [address] [place] [id number] Rosalie Ordoñez, KESHIA Prostate CA (HCC) (Primary Dx) 08/05/2024 11:00 AM CDT Clinical Support [facility] Radiation Oncology [address] [place] [id number] Prostate cancer (HCC) (Primary Dx) from Last 3 Months Immunizations Immunization Administration Dates Next Due Influenza, Quadrivalent, Spl it, Intramuscular 01/17/2021,03/23/2020,12/31/2019 Influenza, Quadrivalent, Spl it, Preservative Free, Intramuscular 01/09/2020 Moderna SARS-CoV-2 Monovalen t Vaccination (12+ YRS) 01/07/2021 Pfizer SARS-CoV-2 Monovalent Vaccination (12+ Yrs) PURPLE 06/04/2020 Sars-CoV-2, Unspecified 05/14/2020 Surgical History Surgery Date Site/Laterality Comments PROSTATE SURGERY 12/01/2017 - 12/30/2017 [facility] MELANOMA RESECTION 04/02/1978 - 04/01/1979 Right shoulder MELANOMA RESECTION 04/02/1978 - 04/01/1979 Right right leg US GUIDED BIOPSY LYMPH NODE SUPERFICIAL LEFT 04/14/2021 N/A Medical History Medical History Date Comments Personal history of malignan t melanoma of skin History of malignant melanom a - (Added by TW Conv) CVA (cerebral vascular accident) (HCC) 07/2017 Prostate cancer (HCC) Hypercholesteremia Hypertension 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) Melanoma in situ of shoulder, right (HCC) Asthma Tongue cancer (HCC) Family History Medical History Relation Name Comments Melanoma Daughter Heart disease Father Family history of cardiac disorder - (Added by TW Conv) Relation Name Status Comments Daughter Alive Father Maternal Grandfather Maternal Grandmother Mother Paternal Grandfather Paternal Grandmother Social History Tobacco Use Types Packs/Day Years Used Date Smoking Tobacco: Never Smokeless Tobacco: Never Chew Quit: 1964 Tobacco Cessation:Counseling Given: Not Answered Alcohol Use [...] on file 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 Gender Identity Not on file Sexual Orientation Not on file Obstetrics History Last Filed Vital Signs Vital Sign Reading [...] 06/27/2024 11:34 AM CDT Plan of Treatment Health Maintenance Due Date Last Done Comments Depression Screening 1945 Hepatitis C Screening 1945 DTaP/Tdap/Td Vaccine (1 - Tdap) 1956 Hepatitis B Screening 11/19/1963 Pneumococcal vaccine 65+ (1 of 2 - PCV) 1964 Zoster Vaccine (1 of 2) 1964 Well Visit 65+ 2010 Fall Risk Assessment 06/03/2023 06/02/2022, 11/22/2021, 07/20/2021, Additional history exists Covid-19 Vaccine ( - 2023-2 5 season) 2023 01/07/2021, 06/04/2020, 05/14/2020 Influenza Vaccine (#1) 2024 , 03/23/2020, 01/09/2020, Additional history exists Abdominal Aortic Aneurysm (A AA) Screen Completed 12/23/2020 Procedures Procedure Name Priority Date/Time Associated Diagnosis [...] < OR = 4.0 ng/mL [facility] PSA, free 0.1 ng/mL [facility] PSA, free 33 >25 % (calc) [facility] Comment: PSA(ng/mL) Free PSA(%) Estimated(x) Probability of Cancer(as%) 0-2.5 (*) Approx. 1 2.6-4.0(1) 0-27(2) 24(3) 4.1-10(4) 0-10 56 11-15 28 16-20 20 21-25 16 >or =26 8 >10(+) N/A >50 References:(1)Jina et al.:Urology 60: 469-474 (2001) (2)Jina et al.:J.Urol 168: 922-925 (2001) Free PSA(%) Sensitivity(%) Specificity(%) < or = 25 85 19 < or = 30 93 9 (3)Catalona et al.:GALI 277: 7971-6402 (1996) (4)Catalona et al.:GALI 279: 5352-5072 (1997) (x)These estimates vary with age, ethnicity, [...] mind. PSA was performed using the Zackery Guy Immunoassay method. Values obtained from different assay methods cannot be used interchangeably. PSA levels, regardless of value, should not be interpreted as absolute evidence of the presence or absence of disease. Blood 07/28/2024 9:09 AM CDT 07/28/2024 9:09 AM CDT [facility] - 07/30/2024 12:19 PM CDT FASTING:NO FASTING: NO Rosalie Ordoñez NP LAB BLOOD ORDERABLES Final Result [facility] [address] [place] [address] * (ABNORMAL) Total testosterone (07/28/2024 9:09 AM CDT) Testosterone <10(L) 250 - 827 ng/dL [facility] Comment: In hypogonadal males, Testosterone, Total, LC/MS/MS, is the recommended assay due to the diminished accuracy of immunoassay at levels below 250 ng/dL. This test code (51400) must be collected in a red-top tube with no gel. Blood 07/28/2024 9:09 AM CDT 07/28/2024 9:09 AM CDT [facility] - 07/30/2024 12:19 PM CDT FASTING:NO FASTING: NO Rosalie Ordoñez PURCHASING/RECEIVING LAB BLOOD ORDERABLES Final Result [facility] [id number] [facility] [place] [id number] * CT abdomen pelvis with contrast (12/23/2020 [...] by: Jose L Adams M.D. Rosalie Ordoñez NP IM CT PROCEDURES Final Res ult from Last 3 Months or Most Recently Relevant to Health Maintenance Insurance [facility] MEDICARE [facility] MEDICARE [facility] [place] [address] [place] [address] MEDICARE [facility] [place] [id number] Advance Directives For more information, please contact: [phone] * Full Code (Latest Code Status on File) Date Activated Date Inactivated Comments 06/02/2022 11:54 AM 06/02/2022 5:10 PM * Full Code Date Activated Date Inactivated Comments 07/26/2021 8:02 PM 07/30/2021 11:08 PM * Full Code Date Activated Date Inactivated Comments 12/11/2017 10:07 PM 12/12/2017 2:03 PM Care Teams Receiver Bulk System Relationship Specialty Start Date End Date Wilber Moe PA [address] [place] [address] PCP - General Internal Medicine 06/19/23 Yahir Marley MD Radiation Oncologist Radiation Oncology 08/07/18 Yuri Rogel MD Referring Physician Urology 08/07/18 Rosalie Ordoñez NP [address] [facility] [address] [place] [address] Nurse Practitioner Radiation Oncology 04/17/19 Javier Correa MD [address] [facility] DEPT OTOLARYNGOLOGY[address] [address] Consulting Physician Otolaryngology 04/21/21 Reinaldo Wilks MD [address] [facility] DEPT OTOLARYNGOLOGY, [address] [address] Consulting Physician Radiation Oncology 04/21/21
--- NOTE | 2024-11-19 14:13 | P.PCNPFT_ITS ---
PFT Procedure Performed PFT Procedure Performed Spirometry with Pre/Post Bronchodilator Plethysmography (Lung Vol) Diffusing Cap (DLCO) Flow Vol Loop PFT Interpretation This is a pulmonary function test with pre and post-bronchodilator spirometry, plethysmography and diffusing capacity. The test was performed and results interpreted in accordance with the 2019 and 2005 ATS/ERS Task Force guidelines respectively using the Global Lung Function Initiative-2012 reference equations. Patient demonstrated good effort and cooperation. Reproducibility criteria were met. The quality of the pre bronchodilator spirometry maneuver was Grade B and post bronchodilator spirometry maneuver was Grade B. Findings: Spirometry: There is decreased maximal expiratory airflow at all lung volumes with a concave expiratory flow tracing. The contour of the inspiratory flow tracing is normal. The pre bronchodilator FVC is 5.16 L, 107% predicted. The pre bronchodilator FEV1 is 2.26 L, 64% predicted. The pre bronchodilator FEV1: FVC ratio is 44%. The post bronchodilator FVC is 5.60 L, representing a 9% increase. The post bronchodilator FEV1 is 2.61 L, representing a 16% increase. The post bronchodilator FEV1: FVC ratio is 47%. Plethysmography: The total lung capacity is 6.78 L, 82% predicted. The funct ional residual capacity is 2.35 L, 52% predicted. The residual volume is 1.18 L, 40% predicted. Diffusing capacity: The diffusing capacity unadjusted for hemoglobin and carboxyhemoglobin is 16.9, 63% predicted. The diffusing capacity adjusted for alveolar volume is 2.08, 62% predicted. In comparison to previous pulmonary function testing on 06/11/2020, the post bronchodilator FVC is unchanged from 6.14 L to 5.60 L. The post bronchodilator FEV1 is decreased from 3.24 L to 2.61 L. The total lung capacity is decreased from 10.26 L to 6.78 L. The functional residual capacity is decreased from 5.91 L to 2.35 L. The residual volume is decreased from 4.84 L to 1.18 L. The diffusing capacity unadjusted for hemoglobin and carboxyhemoglobin is decreased from 23.3 to 16.9. The diffusing capacity adjusted for alveolar volume is decreased from 2.58 to 2.08. Impression: There is a moderate obstructive abnormality. There is significant improvement after inhaling a single dose of albuterol. The total lung capacity is normal with a decreased functional residual capacity and residual volume. This is an abnormal but nonspecific lung volume pattern. The diffusing capacity unadjusted for hemoglobin and carboxyhemoglobin is mildly decreased and remains mildly decreased when adjusted for alveolar volume. In comparison to previous pulmonary function testing on 06/11/2020, there has been a greater than anticipated time dependent decrease in the EF E V1, total lung capacity, functional residual capacity, residual volume and diffusing capacity with no significant change in the FVC. Clinical correlation is recommended.
== END 2024-10-21 14:18 | disposition home or self-care (01) ==
PROVIDERS: Visit Provider Nurse Practitioner
DX: J45.909 Unspecified asthma, uncomplicated (principal)
CPT/HCPCS: 94060; 94726; 94729

== ENCOUNTER 2025-01-01 14:40 | Emergency (ER) | payer OTHER, SELFPAY ==
[2025-01-01 14:55] VITALS: BP 146/80; PULSE 76; RESP 16; TEMP 36.5; O2SAT 96
--- NOTE | 2025-01-01 15:11 | ED.HEATRA ---
HPI - Head Injury General Chief complaint: Wound/Laceration Stated complaint: Laceration to head Time Seen by Provider: 01/01/25 15:11 Source: patient and RN notes reviewed Mode of arrival: ambulatory Limitations: no limitations History of Present Illness HPI Narrative: 79-year-old male presents Express Care complaining of head injury. Patient said approximate 1 hour ago use on his front porch when he accidentally tripped and fell off striking his head on the sidewalk. Patient denies any LOC. patient has a laceration over his left eyebrow with abrasion to his left her maxillary region. Patient also has abrasion to his left wrist and abrasion to his left 2nd toe. Patient denies any other injuries. Patient denies any headache, vision changes, nausea, vomiting, dizziness, lightheadedness, slurred speech, facial droop, focal weakness, chest pain, breathing problems, double vision, or any other symptoms. Patient denies any anticoagulants but does take a baby aspirin daily. Patient said he drove himself here for further evaluation. Patient is unsure of his tetanus status. Patient denies any wrist pain or foot pain. Related Data Home Medications ?Medication ?Instructions ?Recorded ?Confirmed ?Last Taken ?Type beclomethasone dipropionate 80 inhalation 01/01/25 Unknown History mcg/actuation HFA breath activated aerosol (Qvar RediHaler) levothyroxine 50 mcg tablet mcg 01/01/25 Unknown History lisinopril 5 mg tablet mg 01/01/25 Unknown History montelukast 10 mg tablet mg 01/01/25 Unknown History Allergies Allergy/AdvReac Type Severity Reaction Status Date / Time No Known Allergies Allergy Verified 01/01/25 14:54 Review of Systems Review of Systems: CONSTITUTIONAL: Denies fever, chills, or sweats. EYES: Denies visual changes, redness, or discharge. ENT: Denies rhinorrhea, congestion, sore throat, or otalgia. CARDIOVASCULAR: Denies chest pain, palpitations, or edema. RESPIRATORY: Denies cough or dyspnea. GASTROINTESTINAL: Denies abdominal pain, nausea, vomiting, or diarrhea. GENITOURINARY: Denies dysuria or hematuria. SKIN: Denies rash or itching. Positive for laceration and abrasions. MUSCULOSKELETAL: Denies back pain, joint pain, or myalgia. NEUROLOGIC: Denies headache, numbness, or weakness. PSYCHIATRIC: Denies anxiety or depression. All other systems reviewed are negative, except as documented in HPI. 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 There is no relevant family history pertinent to the patient complaint. Exam Narrative: GENERAL: This is a well-nourished, well-developed adult, in no apparent distress. They are non ill-appearing, nontoxic appearing. HEAD: normocephalic. No Millan sign or raccoon eyes. Hematoma present above left eye, is erythematous with laceration present. Eyebrows are intact. Lacerations measuring approximately 2 cm long, is on approximated. Hemostasis achieved prior to arrival. EYES: Sclera clear/white. Conjunctiva normal. Vision is grossly intact. Extraocular movements intact. Pupils PERRLA. EARS: External ears normal, Hearing grossly intact. NOSE: External nose normal THROAT: Mucous membranes moist, NECK: Neck supple, non-tender without lymphadenopathy, masses or thyromegaly. No cervical point tenderness, crepitus, or step-offs. Nontender through full range of motion. CARDIOVASCULAR: Regular rate and rhythm without murmurs, gallops, or rubs. RESPIRATORY: Clear to auscultation. Breath sounds equal bilaterally. No wheezes, rales, or rhonchi. SKIN: Skin tear present to lateral distal wrist. No bony tenderness to wrist. Abrasion present to left 2nd toe. Mild tenderness. NEURO: awake, alert, and oriented to person, place and time. There were no obvious focal neurologic abnormalities. EXTREMITIES: No joint tenderness, effusion, or edema noted. BACK: Nontender without deformity. No CVA tenderness. No thoracic or lumbar point tenderness, crepitus, or step-offs. Course Course Emergency Course: Portions of this record may have been created with voice recognition software Level of Care: Express Care Visit Vital Signs Vital signs: Vital Signs Temperature 97.7 F 01/01/25 14:55 Pulse Rate 76 01/01/25 14:55 Respiratory Rate 16 01/01/25 14:55 Blood Pressure 146/80 H 01/01/25 14:55 Pulse Oximetry 96 01/01/25 14:55 Temperature 97.7 F 01/01/25 14:55 Pulse Rate 76 01/01/25 14:55 Respiratory Rate 16 01/01/25 14:55 Blood Pressure 146/80 H 01/01/25 14:55 Pulse Oximetry 96 01/01/25 14:55 Reviewed Transfer Transfered to: [facility] Transportation: Other (Private vehicle) Transfer rationale: Patient requires higher level care, rule out significant head trauma, patient requires advanced imaging and a CT scan. Patient tries wound closure of laceration Accepting physician: Bernice Ramirez NP MDM - Head Injury MDM Narrative Medical decision making narrative: [place] CT head injury/trauma score 1, cannot exclude significant head injury, [place] Head CT scores high, cannot exclude significant head injury due to patient's age. Patient does not take anticoagulants take a baby aspirin. Patient currently asymptomatic, neurologically intact. Given patient's symptoms, it is recommend the patient seek a higher level care and proceed immediately to the emergency department. It Is recommended patient wait for wound closure until his head has been evaluated and cleared at a higher level care facility likely with a CT scan or advanced imaging. Patient's wounds were cleansed and dressed by nursing staff. Patient is agreeable to go to [facility] ER. Called over to [facility] and spoke to Bernice Ramirez NP who is aware this patient accepted this patient for transfer. Offered patient EMS he declined, patient states he drove himself, patient says he feels comfortable drive himself to the hospital. Patient currently asymptomatic, patient has the mental capacity to make informed medical decisions for himself. Advised patient remain NPO and proceed immediately to the ER. Advised patient and changes in his condition from here to the hospital to pin puller and call 911 immediately. Patient verbalized understanding. Patient's vital signs hemodynamically stable. Differential Diagnosis Differential diagnosis: Likely concussion without loss of consciousness, epidural hematoma, closed head injury and other (Laceration, skull fracture, toe fracture, wrist fracture, skin tears, abrasions, drum injuries) Critical Care Time Critical Care Time Critical Care Time: No Discharge Plan Discharge Clinical Impression: Abrasion Fall Qualifiers: Encounter type: initial encounter Qualified Code(s): W19.XXXA - Unspecified fall, initial encounter Forehead laceration Qualifiers: Encounter type: initial encounter Qualified Code(s): S01.81XA - Laceration without foreign body of other part of head, initial encounter Head injury Qualifiers: Encounter type: initial encounter Qualified Code(s): S09.90XA - Unspecified injury of head, initial encounter Patient Disposition: Acute Care Hospital Condition: Stable Patient Language: Indonesian Prescriptions: No Action valacyclovir [Valtrex] 1 gram tablet 1,000 mg PO Q12H 7 Days Qty: 14 0RF levothyroxine 50 mcg tablet montelukast 10 mg tablet lisinopril 5 mg tablet Qvar RediHaler 80 mcg/actuation HFA aerosol breath activated INHALATION aspirin [Adult Aspirin Regimen] 81 mg tablet,delayed release (DR/EC) 81 mg PO DAILY Qty: 90 3RF atorvastatin 40 mg tablet 40 mg PO DAILY Qty: 90 3RF Follow-up/Referrals: UNKNOWN,DOCTOR [Primary Care Provider] Time of Disposition: 15:10
== END 2025-01-01 15:27 | disposition short-term general hospital (02) ==
DX: S90.415A Abrasion, left lesser toe(s), initial encounter (principal); S01.81XA Laceration without foreign body of other part of head, initial encounter; S09.90XA Unspecified injury of head, initial encounter; W17.89XA Other fall from one level to another, initial encounter; Z86.73 Personal history of transient ischemic attack (TIA), and cerebral infarction without residual deficits; Z85.810 Personal history of malignant neoplasm of tongue; Z85.46 Personal history of malignant neoplasm of prostate; Z85.820 Personal history of malignant melanoma of skin
CPT/HCPCS: 99212; G0463

== ENCOUNTER 2025-01-01 15:51 | Emergency (ER) | payer OTHER, MEDICARE, SELFPAY ==
--- NOTE | ~2025-01-01 | CT_ITS ---
EXAMINATION: CT facial bones wo con COMPARISON: None HISTORY: fall TECHNIQUE: Axial images were obtained without IV contrast. Sagittal, coronal reconstruction images were obtained from the axial views. CT scan performed using dose optimization techniques including the following automated exposure control; adjustment of mA and/or kV; use of iterative reconstruction technique. Automatic exposure control was used to reduce radiation dose. Permanent radiation dose record is archived to PACS. FINDINGS: CT facial bones: The nasal bones are intact. The anterior maxillary sinus frances and zygomatic arches are intact. The temporomandibular joints are intact. Orbital floors and medial orbits are intact. There is severe frontal, ethmoidal and maxillary sinusitis with severe sphenoid sinusitis with underlying polyp formation suspected. Visualized brain parenchyma is unremarkable. No retrobulbar hemorrhage or soft tissue swelling. IMPRESSION: No acute fracture. Severe sinusitis Reviewed, dictated and finalized at location P.
--- NOTE | ~2025-01-01 | CT_ITS ---
EXAMINATION: CT brain wo jake, 01/01/2025 17:19 CDT HISTORY: fall COMPARISON: No comparisons available. Technique: Axial images obtained of the brain without contrast. One or more of the following dose reduction techniques were used: automated exposure control, adjustment of the mA and/or kV according to patient size, use of iterative reconstruction technique. Findings: No acute infarct or parenchymal hemorrhage. No abnormal mass or mass effect. No midline shift. No extra-axial fluid collections. No hydrocephalus. Mastoid air cells unremarkable. Severe sinusitis in the ethmoidal, frontal and sphenoid sinuses with underlying polyp formation suspected. No acute fracture. No significant facial or scalp soft tissue swelling evident. No radiopaque foreign body is seen. Impression: 1.No acute intracranial abnormality. Reviewed, dictated and finalized at location P. Impression: 1.No acute intracranial abnormality.
[2025-01-01 16:23] VITALS: BP 134/80; PULSE 76; RESP 20; TEMP 36.8; O2SAT 97
--- NOTE | 2025-01-01 17:15 | ED_ITS ---
HPI - General Adult General Chief complaint: Fall Stated complaint: Fall Time Seen by Provider: 01/01/25 16:34 History of Present Illness HPI narrative: Christian Morton is a 79-year-old male who presents after missing a step falling down 1 stair striking his head on seem went earlier today denies loss of consciousness. Denies any neck pain.Denies taking any anticoagulants Related Data Home Medications ?Medication ?Instructions ?Recorded ?Confirmed ?Last Taken ?Type beclomethasone dipropionate 80 inhalation 01/01/25 Un known History mcg/actuation HFA breath activated aerosol (Qvar RediHaler) levothyroxine 50 mcg tablet mcg 01/01/25 Unknown Hist ory lisinopril 5 mg tablet mg 01/01/25 Unknown History montelukast 10 mg tablet mg 01/01/25 Unknown History Allergies Allergy/AdvReac Type Severity Reaction Status Date / Time No Known Allergies Allergy Verified 01/01/25 14:54 Review of Systems Review of Systems: All systems reviewed & are unremarkable except as noted in HPI and below PMFSH Past Medical History Medical History Tongue cancer DVT prophylaxis 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 HEAD: Normocephalic, Laceration above left eyebrow and abrasion to left upper cheek. EYES: PERRLA and EOMI. ENT: Nares clear, no rhinorrhea or epistaxis. Mucous membranes moist. Oropharynx without tonsillar hypertrophy exudate or other lesions. NECK: Supple. No adenopathy or masses. No carotid bruits or JVD CHEST: Clear to auscultation. No respiratory distress. No wheezes rales or rhonchi HEART: Regular rate and rhythm. No murmur heard. Normal peripheral pulses. ABDOMEN: Soft, nontender, nondistended, normal active bowel sounds. EXTREMITIES: Normal range of motion. No edema. SKIN: Warm, dry, no rash. NEURO: No focal deficits. Alert and oriented x3. PSYCH: Normal mood and affect. Course Vital Signs Vital signs: Vital Signs Temperature 36.8 C 01/01/25 16:23 Pulse Rate 76 01/01/25 16:23 Respiratory Rate 20 01/01/25 16:23 Blood Pressure 134/80 01/01/25 16:23 Pulse Oximetry 97 01/01/25 16:23 Temperature 36.8 C 01/01/25 16:23 Pulse Rate 66 01/01/25 18:23 Respiratory Rate 16 01/01/25 18:23 Blood Pressure 124/80 01/01/25 18:23 Pulse Oximetry 98 01/01/25 18:23 Procedures Laceration Laceration 1: Date: 01/01/25 Time: 18:21 Site: face Side (If applicable): left Size (cm): 2 Description: linear Depth: simple, single layer Local Anesthetic: lidocaine 2% (with epi ) Amount of anesthesia used (mL): 5 Pre-repair: wound explored, irrigated and irrigated extensively ====== Skin Level ====== Skin layer closed with: nylon Size (cm): 4-0 Number of sutures: 5 Technique: simple, interrupted ====== Subcutaneous Layer ====== ====== Muscle Layer ====== ====== Tendon Layer ====== Medical Decision Making [facility] Narrative Medical decision making narrative: 79-year-old male with an laceration above left eyebrow no active bleeding abrasion to left cheek, EOM intact, denies loss of consciousness He rates pain at a 2 or 3 out of 10 concern for : brain bleed, facial bone fracture, concussion CT facial bones : No acute fracture. Severe sinusitis CT brain: No acute intracranial abnormality. laceration above left eye brown about 2 cm in length, area cleansed wtih sterile saline, anesthetized with local infiltrate with lidocaine 2% wtih epi, once he was anesthetized, wound thoroughly irrigated with sterile saline 300mls, prepped with Betadine and closed with 5 size 4.0 sutures. patient tolerated well The skin surrounding the laceration is abrased, the area was then covered wtih antibiotic ointment and sterile dressing of Telfa placed over wound. Discussed with patient the signs and symptoms of concussion symptoms and even though he did have loss of consciousness with this fall hitting his head he likely has a concussion. The encouraged him to take Tylenol Motrin for pain and as needed. Discussed care for his sutures at the only new be removed in 10 days keeping area clean and cover bother healing he may use antibiotic ointment to the abrasions around the laceration and to his left side of his face. He is comfortable with this plan denies any further at this time. Medical Records Medical records reviewed: Yes I reviewed the external patient's medical records. Vital Signs Vital Signs: Vital Signs Temperature 36.8 C 01/01/25 16:23 Pulse Rate 76 01/01/25 16:23 Respiratory Rate 20 01/01/25 16:23 Blood Pressure 134/80 01/01/25 16:23 Pulse Oximetry 97 01/01/25 16:23 Temperature 36.8 C 01/01/25 16:23 Pulse Rate 66 01/01/25 18:23 Respiratory Rate 16 01/01/25 18:23 Blood Pressure 124/80 01/01/25 18:23 Pulse Oximetry 98 01/01/25 18:23 Vitals reviewed Lab Data Lab results reviewed: Yes I reviewed the patient's lab results. Imaging Data Radiologist's impression: Impressions Head CT 01/01/25 17:36 Impression: 1.No acute intracranial abnormality. Face CT 01/01/25 17:41 IMPRESSION: No acute fracture. Severe sinusitis Discharge Plan Discharge Clinical Impression: Facial laceration, Concussion, Fall Patient Disposition: Home Condition: Stable Instructions: Antibiotic Form, Care For Your Stitches (ED), Concussion (ED) Additional Instructions: Your sutures will need to be removed in about 10 days, You may shower, try to not to rub or scratch them Apply antibiotic ointment on the abrasions on your face to help them heal You may take Tylenol and Motrin for pain Please follow up with your PCP in 1 week to ensure you are improving If you should have an new or worsening symptoms, or signs of infection that we discussed return to the ER. Also, applying ice to your wound 20 mins at a time for the next 48 hours will help reduce swelling Patient Language: Citizen Of [place] Prescriptions: No Action valacyclovir [Valtrex] 1 gram tablet 1,000 mg PO Q12H 7 Days Qty: 14 0RF levothyroxine 50 mcg tablet montelukast 10 mg tablet lisinopril 5 mg tablet Qvar RediHaler 80 mcg/actuation HFA aerosol breath activated INHALATION aspirin [Adult Aspirin Regimen] 81 mg tablet,delayed release (DR/EC) 81 mg PO DAILY Qty: 90 3RF atorvastatin 40 mg tablet 40 mg PO DAILY Qty: 90 3RF Follow-up/Referrals: UNKNOWN,DOCTOR [Primary Care Provider] Time of Disposition: 18:14
[2025-01-01] MEDS: ACETAMINOPHEN 500 MG TABLET 1000 MG PO (17:31)
[2025-01-01] MEDS: TETANUS,DIPHTHERIA,AC PERTUSSIS ADULT (0.5 ML) BOOSTRIX IM (17:31)
[2025-01-01] MEDS: IBUPROFEN 600 MG TABLET PO (18:20)
[2025-01-01 18:23] VITALS: BP 124/80; PULSE 66; RESP 16; O2SAT 98
== END 2025-01-01 18:24 | disposition home or self-care (01) ==
PROVIDERS: Emergency Provider Nurse Practitioner Family
DX: S01.81XA Laceration without foreign body of other part of head, initial encounter (principal); S60.812A Abrasion of left wrist, initial encounter; S90.415A Abrasion, left lesser toe(s), initial encounter; W17.89XA Other fall from one level to another, initial encounter; Z79.82 Long term (current) use of aspirin; Z23 Encounter for immunization
CPT/HCPCS: 12011; 70450; 70486; 90471; 90715; 99284; A9270